=== PATIENT | female | born 1995 | race Two or more races ===

== ENCOUNTER → 2021-01-27 15:58 | Outpatient (BNVA) | payer OTHER, SELFPAY | PROVIDERS: PCP Nurse Practitioner Family; Referring Provider Nurse Practitioner Family; Visit Provider Physician Assistant Surgical ==

== ENCOUNTER → 2021-01-27 15:58 | Outpatient (BNVA) | payer OTHER, SELFPAY | PROVIDERS: PCP Nurse Practitioner Family; Referring Provider Nurse Practitioner Family; Visit Provider Physician Assistant Surgical ==

== ENCOUNTER → 2021-03-01 08:10 | Outpatient (BNVA) | payer OTHER, SELFPAY | PROVIDERS: PCP Nurse Practitioner Family; Visit Provider Surgery ==

== ENCOUNTER 2021-03-03 06:22 | Outpatient (REF) | payer OTHER, SELFPAY ==
[2021-03-03 06:30] LABS: MANUAL DIFF FLAG NO
[2021-03-03 07:35] LABS: Basophils Absolute Auto 0.1 X10*3/uL (0.0-0.2); Basophils Percent Auto 0.8 % (0-2); Eosinophils Absolute Auto 0.1 X10*3/uL (0.0-0.4); Eosinophils Percent Auto 1.8 % (0-4); Hematocrit 38.6 % (37.0-47.0); Hemoglobin 12.3 g/dl (12.0-16.0); Imm Gran Abs Auto 0.02 X10*3/uL (0.00-0.03); Imm Gran Pct Auto 0.3 % (0.0-0.4); Lymphocytes Absolute Auto 2.6 X10*3/uL (1.2-4.9); Lymphocytes Percent Auto 35.2 % (20-40); Mean Corpuscular HGB Conc 31.9 g/dl (31.0-35.0); Mean Corpuscular Volume 87.7 fL (80.0-98.0); Mean Platelet Volume 11.4 fL (9.4-12.3); Monocytes Absolute Auto 0.4 X10*3/uL (0.1-1.2); Monocytes Percent Auto 5.7 % (2-11); Neutrophils Absolute Auto 4.08 x10*3/uL (2.0-8.3); Neutrophils Percent Auto 56.2 % (45-73); Platelet Count 352 X10*3/uL (160-400); Red Cell Distribution Width 12.3 % (11.0-16.0); White Blood Count 7.3 X10*3/uL (4.8-10.8)
[2021-03-03 08:12] LABS: Alanine Aminotransferase 20 U/L (0-31); Albumin Level 4.1 g/dL (3.5-5.0); Alkaline Phosphatase 188 U/L (39-117); Anion Gap 13 (12-20); Aspartate Amino Transferase 20 U/L (5-31); Bilirubin Total 0.3 mg/dL (0.0-1.0); Blood Urea Nitrogen 12 mg/dL (9-16); C Reactive Protein 0.73 mg/dL (< or = 0.50); Calcium 9.2 mg/dL (8.4-10.2); Carbon Dioxide 24 mmol/L (22-29); Chloride 107 mmol/L (96-108); Cholesterol 156 mg/dL; Estimated Glomerular Filt Rate > 60; Glucose Random 93 mg/dL (60-115); HDL Cholesterol 29 mg/dL; Iron 37 mcg/dL (30-160); LDL Cholesterol Calculated 110 mg/dl; Percent Iron Saturation 10 % (15-50); Potassium 4.2 mmol/L (3.3-5.1); Sodium 140 mmol/L (135-145); Total Iron Binding Capacity 365 mcg/dL (228-428); Triglycerides 89 mg/dL; Unsaturated Iron Binding 328 ug/dL
[2021-03-03 08:37] LABS: Ferritin 28 ng/mL (10-122); Insulin 19 uU/mL (2-29); Vitamin D 25-OH Total 13.7 ng/mL (>30)
[2021-03-03 08:40] LABS: Estimated Average Glucose 94 mg/dL; Hemoglobin A1c % 4.9 %
[2021-03-03 09:32] LABS: Folate 10.9 ng/mL (> or = 4.0); Vitamin B12 431 pg/mL (200-900)
[2021-03-04 16:51] LABS: Calcium (PTHI) 9.6 mg/dL (8.6-10.2); PTHI 54 pg/mL (14-64)
[2021-03-07 15:17] LABS: Zinc 73 mcg/dL (60-130)
[2021-03-08 10:46] LABS: Vitamin B1 9 nmol/L (8-30)
[2021-03-08 12:20] LABS: Vitamin A 29 mcg/dL (38-98)
== END 2021-03-03 06:23 | disposition home or self-care (01) ==
LOC: HO.LAB 06:22
PROVIDERS: PCP Nurse Practitioner Family; Visit Provider Surgery
DX: E66.01 Morbid (severe) obesity due to excess calories (principal); E78.5 Hyperlipidemia, unspecified
CPT/HCPCS: 36415; 80053; 80061; 82306; 82607; 82728; 82746; 83036; 83525; 83540; 83970; 84425; 84443; 84590; 84630; 85025; 86140

== ENCOUNTER → 2021-03-24 08:04 | Outpatient (BNVA) | payer OTHER, SELFPAY | PROVIDERS: PCP Nurse Practitioner Family; Visit Provider Surgery ==

== ENCOUNTER → 2021-04-05 08:21 | Outpatient (BNVA) | payer OTHER, SELFPAY | PROVIDERS: PCP Nurse Practitioner Family; Visit Provider Dietitian, Registered ==

== ENCOUNTER → 2021-04-16 08:11 | Outpatient (BNVA) | payer OTHER, SELFPAY | PROVIDERS: PCP Nurse Practitioner Family; Visit Provider Dietitian, Registered | DX: E66.9 Obesity, unspecified (principal); Z68.37 Body mass index [BMI] 37.0-37.9, adult | CPT/HCPCS: 97802 ==

== ENCOUNTER → 2021-04-26 07:48 | Outpatient (BNVA) | payer OTHER, SELFPAY | PROVIDERS: PCP Nurse Practitioner Family; Visit Provider Surgery ==

== ENCOUNTER 2021-05-07 10:26 | Outpatient (REF) | payer OTHER, SELFPAY ==
--- NOTE | ~2021-05-07 | XR_ITS ---
EXAMINATION: XR CHEST CLINICAL INFORMATION: Moderate to severe obesity due to excess calories. COMPARISON: None TECHNIQUE: 2 views of the chest were obtained. FINDINGS: No significant abnormality is noted involving the heart, lungs, mediastinum, bony thorax or soft tissues. XR/XR chest 2V IMPRESSION: Unremarkable chest examination.
--- NOTE | 2021-05-07 11:03 | ECG_ITS ---
Test Reason : e66.01 Blood Pressure : / mmHG Vent. Rate : 075 BPM Atrial Rate : 075 BPM P-R Int : 162 ms QRS Dur : 088 ms QT Int : 386 ms P-R-T Axes : 051 068 039 degrees QTc Int : 431 ms Normal sinus rhythm with sinus arrhythmia Normal ECG No previous ECGs available Referred By: Jamar Wetzel Electronically Signed By:VIRGINIA ROSS MD
[2021-05-09 14:50] LABS: H Pylori Breath Test Negative (Negative)
== END 2021-05-07 10:27 | disposition home or self-care (01) ==
LOC: HO.XRAY 10:26
PROVIDERS: Surgery; PCP Nurse Practitioner Family; Referring Provider Nurse Practitioner Family; Visit Provider Physician Assistant
DX: E66.01 Morbid (severe) obesity due to excess calories (principal); E78.5 Hyperlipidemia, unspecified
CPT/HCPCS: 36415; 71046; 83013; 93005; 99211

== ENCOUNTER → 2021-05-13 08:17 | Outpatient (BNVA) | payer OTHER, SELFPAY | PROVIDERS: PCP Nurse Practitioner Family; Referring Provider Surgery; Visit Provider Dietitian, Registered ==

== ENCOUNTER → 2021-05-24 07:45 | Outpatient (BNVA) | payer OTHER, SELFPAY | PROVIDERS: PCP Nurse Practitioner Family; Visit Provider Surgery ==

== ENCOUNTER → 2021-06-09 08:28 | Outpatient (BNVA) | payer OTHER, SELFPAY | PROVIDERS: PCP Nurse Practitioner Family; Referring Provider Surgery; Visit Provider Dietitian, Registered | DX: E66.9 Obesity, unspecified (principal); Z68.37 Body mass index [BMI] 37.0-37.9, adult | CPT/HCPCS: 97803 ==

== ENCOUNTER → 2021-06-14 08:04 | Outpatient (BNVA) | payer OTHER, SELFPAY | PROVIDERS: PCP Nurse Practitioner Family; Visit Provider Physician Assistant Surgical ==

== ENCOUNTER → 2021-06-18 08:47 | Outpatient (BNVA) | payer OTHER, SELFPAY | PROVIDERS: PCP Nurse Practitioner Family; Visit Provider Surgery ==

== ENCOUNTER → 2021-07-05 08:04 | Outpatient (BNVA) | payer OTHER, SELFPAY | PROVIDERS: PCP Nurse Practitioner Family; Visit Provider Surgery ==

== ENCOUNTER → 2021-07-09 12:48 | Outpatient (BNVA) | payer OTHER, SELFPAY | PROVIDERS: PCP Nurse Practitioner Family; Referring Provider Nurse Practitioner Family; Visit Provider Surgery ==

== ENCOUNTER 2021-07-15 07:39 | Inpatient (IN) | payer OTHER, SELFPAY ==
[2021-07-07 16:07] VITALS: BMI 36.4
--- NOTE | 2021-07-10 01:19 | MHC.SHP ---
Pre-Procedural Eval Section A Date of Service: 07/10/21 The patient is an INPATIENT: Yes Section B Chief Complaint: obesity Relevant Family History (Specify if Yes): No Relevant Social History: None Present Medications: None Medical History: No relevant PMH History of Previous Operations: No relevant previous surgery Allergies: Allergies Allergy/AdvReac Type Severity Reaction Status Date / Time No Known Allergies Allergy Verified 07/07/21 16:06 Review of Systems Sugical H&P ROS: Negative: Constitution, Cardiovascular, Respiratory, Neurological, Psychiatric, Hem-Onc, Allergic/Immunologic, Gastrointestinal, Genitourinary, Musculoskeletal, Integumentary, Endocrine and Eyes/Ears/Nose/Throat Exam Surgical H&P Exam: Normal: HEENT, Normal: Heart, Normal: Lungs, Normal: Extremities, Normal: Abdomen, Normal: Skin and Normal: Neurological Plan Diagnosis/Plan: Unchanged I have reviewed the history and physical and performed a pertinent physical examination on my patient. No changes have occurred unless specified.
[2021-07-12 10:19] LABS: MANUAL DIFF FLAG NO
[2021-07-12 11:00] LABS: Basophils Percent Auto 0.4 % (0-2); Eosinophils Absolute Auto 0.1 X10*3/uL (0.0-0.4); Eosinophils Percent Auto 1.3 % (0-4); Hematocrit 40.9 % (37.0-47.0); Hemoglobin 13.3 g/dl (12.0-16.0); Lymphocytes Percent Auto 27.6 % (20-40); Mean Corpuscular HGB Conc 32.5 g/dl (31.0-35.0); Mean Corpuscular Hemoglobin 28.1 pg (27.0-33.0); Mean Corpuscular Volume 86.3 fL (80.0-98.0); Mean Platelet Volume 11.6 fL (9.4-12.3); Monocytes Absolute Auto 0.5 X10*3/uL (0.1-1.2); Monocytes Percent Auto 6.7 % (2-11); Neutrophils Absolute Auto 4.5 x10*3/uL (2.0-8.3); Platelet Count 385 X10*3/uL (160-400); Red Blood Count 4.74 X10*6/uL (4.20-5.50); White Blood Count 7.1 X10*3/uL (4.8-10.8)
[2021-07-12 11:20] LABS: Estimated Average Glucose 91 mg/dL; Hemoglobin A1c % 4.8 %; INTERNATIONAL NORM RATIO 1.2 (0.9-1.1); Prothrombin Time 13.8 SEC (9.9-13.0)
[2021-07-12 11:21] LABS: Alanine Aminotransferase 15 U/L (0-31); Albumin Level 4.3 g/dL (3.5-5.0); Alkaline Phosphatase 182 U/L (39-117); Anion Gap 16 (12-20); Aspartate Amino Transferase 20 U/L (5-31); Bilirubin Total 0.7 mg/dL (0.0-1.0); Blood Urea Nitrogen 16 mg/dL (9-16); C Reactive Protein 0.65 mg/dL (< or = 0.50); Calcium 10.1 mg/dL (8.4-10.2); Carbon Dioxide 24 mmol/L (22-29); Chloride 103 mmol/L (96-108); Cholesterol 162 mg/dL; Creatinine Clr Calc Pharmacy 155.6; Estimated Glomerular Filt Rate > 60; Glucose Random 72 mg/dL (60-115); HDL Cholesterol 32 mg/dL; LDL Cholesterol Calculated 115 mg/dl; Potassium 4.4 mmol/L (3.3-5.1); Sodium 139 mmol/L (135-145); Triglycerides 78 mg/dL
[2021-07-12 11:22] LABS: Partial Thromboplastin Time 46.4 SEC (24.1-38.0)
[2021-07-12 11:47] LABS: Insulin 7 uU/mL (2-29); TSH reflex Free T4 0.86 uIU/mL (0.32-4.0)
--- NOTE | 2021-07-14 08:21 | HO.ANESPROP2 ---
Documented by User: Carole Eden NP 07/14/21 08:23 HPI - Anesthesia Eval Consult details Narrative: 25yo F for Gastrectomy Sleeve,EGD,poss diaphragmatic hernia,poss ventral hernia,poss open, Cochlear implant R ear PMFSH Active Problems Active Problems: All Active Problems (Updated 06/18/21 @ 13:24 by Jamar Wetzel MD) Constipation (Acute) Vitamin A deficiency (Acute) Vitamin D deficiency (Acute) Vitamin B12 deficiency (Acute) Obesity (Acute) BMI 37.0-37.9, adult (Acute) Moderate episode of recurrent major depressive disorder (Acute) BMI 36.0-36.9,adult (Acute) Hyperlipidemia (Acute) Morbid obesity (Acute) Past Medical History Medical History (Updated 07/15/21 @ 12:23 by Jamar Wetzel MD) Hyperlipidemia Morbid obesity PONV (postoperative nausea and vomiting) Steatosis, liver Family History Family History (Updated 03/01/21 @ 11:52 by Garrett Rivera Sofia) Mother No problems noted. Father Stroke Hypertension Sister No problems noted. Sister Asthma Brother No problems noted. Son No problems noted. Daughter No problems noted. Surgical History Surgical History (Updated 07/15/21 @ 14:54 by Kelley Gary PA-C) Hx of external ear surgery Hx of tubal ligation Social History Social History (Updated 07/07/21 @ 16:10 by Erin Hermosillo RN) Are you a primary primary care sales representative to a significant other at home: Yes (children ages 6+1, there to help post-op) Do you presently have visiting nurse or other home services: No Alcohol intake: never Patient Tobacco Use Status: Never used Tobacco Use of substances other than those prescribed or required for medical reasons: No Have you been hit, kicked, punched, or otherwise hurt by someone within the past year? If so, by whom?: No Are you DNR?: No Advance Directives: No (will bring DOS) Advance Directives Information Provided: No Advance Directives on File: No Recently lost weight without trying: No Nutrition Risks: No Nutritional Risk Patient : No FDLMP: 06/30/2021 : No Poor oral hygiene: No (2 front upper crowns) Meds Allergies Allergy/AdvReac Type Severity Reaction Status Date / Time No Known Allergies Allergy Verified 07/07/21 16:06 Home Medications Medication Instructions Recorded Confirmed Last Taken Type sertraline 25 mg tablet 25 mg PO DAILY 07/05/21 07/07/21 Unknown History Exam Exam Date and Time: July 14, [id number] Height,Weight and Vital Signs: Height 5 ft 9 in Weight 112.037 kg Pertinent Lab Results Pertinent Lab Results: Laboratory Tests 07/12/21 07/12/21 07/12/21 10:15 10:15 10:15 WBC 7.1 RBC 4.74 Hgb 13.3 Hct 40.9 MCV 86.3 MCH 28.1 MCHC 32.5 RDW 12.0 Plt Count 385 MPV 11.6 Immature Gran % (Auto) 0.0 Neut % (Auto) 64.0 Lymph % (Auto) 27.6 Bowman % (Auto) 6.7 Eos % (Auto) 1.3 Baso % (Auto) 0.4 Lymph # (Auto) 2.0 Bowman # (Auto) 0.5 Eos # (Auto) 0.1 Baso # (Auto) 0.0 Abs Immat Gran (auto) 0.00 Absolute Neuts (auto) 4.5 Absolute Nucleated RBC 0.000 Nucleated RBC % (auto) 0.0 PT 13.8 H INR 1.2 H APTT 46.4 H Sodium 139 Potassium 4.4 Chloride 103 Carbon Dioxide 24 Anion Gap 16 BUN 16 Creatinine 0.75 Estim Creat Clear Calc 155.6 Estimated GFR > 60 Random Glucose 72 Estimat Average Glucose Hemoglobin A1c % Insulin Level 7 Calcium 10.1 D Total Bilirubin 0.7 AST 20 ALT 15 Alkaline Phosphatase 182 H C-Reactive Protein 0.65 H Total Protein 8.0 Albumin 4.3 Triglycerides 78 Cholesterol 162 LDL Cholesterol, Calc 115 HDL Cholesterol 32 TSH 0.86 Blood Type Antibody Screen 07/12/21 07/12/21 10:15 10:15 WBC RBC Hgb Hct MCV MCH MCHC RDW Plt Count MPV Immature Gran % (Auto) Neut % (Auto) Lymph % (Auto) Bowman % (Auto) Eos % (Auto) Baso % (Auto) Lymph # (Auto) Bowman # (Auto) Eos # (Auto) Baso # (Auto) Abs Immat Gran (auto) Absolute Neuts (auto) Absolute Nucleated RBC Nucleated RBC % (auto) PT INR APTT Sodium Potassium Chloride Carbon Dioxide Anion Gap BUN Creatinine Estim Creat Clear Calc Estimated GFR Random Glucose Estimat Average Glucose 91 Hemoglobin A1c % 4.8 Insulin Level Calcium Total Bilirubin AST ALT Alkaline Phosphatase C-Reactive Protein Total Protein Albumin Triglycerides Cholesterol LDL Cholesterol, Calc HDL Cholesterol TSH Blood Type B Positive Antibody Screen NEGATIVE Narrative Narrative: EKG 05/2021 Vent. Rate : 075 BPM ? ? Atrial Rate : 075 BPM ?? P-R Int : 162 ms? QRS Dur : 088 ms ? ? QT Int : 386 ms ? ? ? P-R-T Axes : 051 068 039 degrees ?? QTc Int : 431 ms ? Normal sinus rhythm with sinus arrhythmia Normal ECG No previous ECGs available Assessment and Plan Assessment Anesthesia Assessment: Chart Reviewed Documented by User: Tu Leahy MD 07/15/21 16:42 HPI - Anesthesia Eval Consult details Narrative: 25yo F for Gastrectomy Sleeve,EGD,poss diaphragmatic hernia,poss ventral hernia,poss open, Cochlear implant R ear. [facility] Past Medical History Medical History (Updated 07/15/21 @ 12:23 by Jamar Wetzel MD) Hyperlipidemia Morbid obesity PONV (postoperative nausea and vomiting) Steatosis, liver Family History Family History (Updated 03/01/21 @ 11:52 by Garrett Rivera [facility]) Mother No problems noted. Father Stroke Hypertension Sister No problems noted. Sister Asthma Brother No problems noted. Son No problems noted. Daughter No problems noted. Family history of problems with anesthesia: No Surgical History Surgical History (Updated 07/15/21 @ 14:54 by Kelley Gary PA-C) Hx of external ear surgery Hx of tubal ligation History of Problems with Anesthesia: Yes (PONV ) Social History Social History (Updated 07/07/21 @ 16:10 by Erin Hermosillo RN) Are you a primary primary care sales representative to a significant other at home: Yes (children ages 6+1, there to help post-op) Do you presently have visiting nurse or other home services: No Alcohol intake: never Patient Tobacco Use Status: Never used Tobacco Use of substances other than those prescribed or required for medical reasons: No Have you been hit, kicked, punched, or otherwise hurt by someone within the past year? If so, by whom?: No Are you DNR?: No Advance Directives: No (will bring DOS) Advance Directives Information Provided: No Advance Directives on File: No Recently lost weight without trying: No Nutrition Risks: No Nutritional Risk Patient : No FDLMP: 06/30/2021 : No Poor oral hygiene: No (2 front upper crowns) Meds Allergies Allergy/AdvReac Type Severity Reaction Status Date / Time No Known Allergies Allergy Verified 07/07/21 16:06 Home Medications Medication Instructions Recorded Confirmed Last Taken Type sertraline 25 mg tablet 25 mg PO DAILY 07/05/21 07/07/21 Unknown History Exam Airway Mallampati Class: II TM Dist: >3cm Neck ROM: Full Loose/Missing/Broken Teeth: Yes (Crowns ) Heart: rrr Lungs: bl breath sounds Assessment and Plan Assessment Anesthesia Assessment: Anesthesia Plan Discussed Final Anesthetic Review Family History of Problems with Anesthesia: No History of Problems with Anesthesia: Yes (PONV ) NPO: Yes ASA Class: III Final Preanesthetic Review: Meds/Allgs Chart Reviewed, Consent Obtained/Reviewed and Anes Risks/Benef Reviewed Patient Risk: High Procedure Risk: Intermediate Anesthetic Plan Anesthetic Plan: GA Disposition: Inp. Admit - Standard Bed
[2021-07-14 13:56] LABS: COVID-19 Test Negative (Negative); IDNOW Serial# 16C4AD1C
[2021-07-15] VITALS (11 sets, daily range): BP systolic 124–138; BP diastolic 65–81; PULSE 59–80; RESP 14–20; TEMP 36.1–36.9; O2SAT 91–101
--- NOTE | ~2021-07-15 | FL_ITS ---
EXAMINATION: XR FLUOROSCOPY UPPER GI WITH AIR CLINICAL INFORMATION: Obesity. Preop. COMPARISON: None TECHNIQUE: Upper GI was performed using thin and thick barium and effervescent granules. FINDINGS: Esophageal motility is normal. No gastroesophageal reflux or hernia is seen. The stomach and duodenum are normal. No fold thickening, mass, ulcer or stricture is seen. FLUOROSCOPY TIME: 0.4 DOSE AREA PRODUCT: 5 herad per centimeter squared. 18 saved fluoroscopic images. FL/FL upper GI w air IMPRESSION: Unremarkable examination.
--- NOTE | ~2021-07-15 | US_ITS ---
EXAMINATION: US COMPLETE ABDOMEN WITH LIVER ELASTOGRAPHY CLINICAL INFORMATION: [id number] obesity due to excess calories. COMPARISON: None. TECHNIQUE: Real-time imaging of the abdominal viscera. Noninvasive ultrasound liver fibrosis assessment is performed using Emmett ElastPQ point quantification shear wave elastography (2D-SWE) with a C5-2 MHz transducer. Multiple elastography samples are obtained. FINDINGS: PANCREAS: The visualized pancreatic head and body are normal in appearance. The remainder of the pancreas is obscured from visualization by the overlying bowel gas. ABDOMINAL AORTA: The proximal, middle, and distal aortic segments are normal in caliber. INFERIOR VENA CAVA: Visualized portions are normal. LIVER: The liver demonstrates normal size, contour and increased echogenicity. No focal lesion or intrahepatic biliary duct dilatation. The right lobe measures 12.2 cm in length. The left lobe measures 8.3 cm in length. Portal flow is hepatopedal. Shear wave liver elastography median stiffness is 1.67 m/s (reference: normal median stiffness is 1.3 m/s or less). IQR/median stiffness to assess sampling precision is 0.12 (reference: good quality data set is IQR/median stiffness of 0.15 or less). GALLBLADDER: There are multiple echogenic gallstones with the largest stone measuring 0.7 x 0.31 x 0.59 seen. In addition, there is echogenic bile. There is mild gallbladder wall thickening. COMMON BILE DUCT: Normal in caliber measuring 0.24 cm in diameter. RIGHT KIDNEY: Normal. No hydronephrosis. No renal calculi or focal parenchymal lesions. The kidney measures 10.8 cm in maximum dimension. LEFT KIDNEY: Normal. No hydronephrosis. No renal calculi or focal parenchymal lesions. The kidney measures 10.0 cm in maximum dimension. SPLEEN: There is a focal lesion measuring 1.8 x 1.4 x 1.2 cm. Adjacent to the spleen, there is likely an accessory splenule. The spleen measures 10.0 cm in maximum dimension. FREE FLUID: None. US/US abdomen comp w elastography IMPRESSION: 1. Gallstones without wall thickening. 2. Hepatic steatosis without focal lesion. 3. Likely a small accessory splenule. 4. Liver elastography: Mean liver stiffness measures 1.67 cm corresponding to cACLD, ruled out. REFERENCE: Society of Radiologists in Ultrasound Liver Stiffness Thresholds (2020): LIVER STIFFNESS THRESHOLDS: *Liver Stiffness equal or less than 1.3 m/s: High probability of being normal. *Liver Stiffness less than 1.7 m/s: In the absence of other known clinical signs, rules out compensated advanced chronic liver disease. *Liver Stiffness 1.7-2.1 m/s: Suggestive of compensated advanced chronic liver disease but need further test for confirmation. *Liver Stiffness over 2.1 m/s: Rules in compensated advanced chronic liver disease. *Liver Stiffness over 2.4 m/s: Suggestive of clinically significant portal hypertension. QUALITY OF DATA SET: *IQR/Median value equal or less than 0.15 implies a quality data set. *IQR/Median value over 0.15 implies a poor quality data set. SIGNIFICANT CHANGE FROM PRIOR EXAM: Significant change if liver stiffness measurement is 10% or greater from prior exam. OTHER CONSIDERATIONS: The stage of liver fibrosis may be overestimated in the setting of acute hepatitis, liver inflammation, elevated liver function tests, hepatic vascular congestion, obstructive cholestasis, non-fasting state, and infiltrative diseases such as amyloidosis and lymphoma. In some patients with NAFLD, the liver stiffness thresholds for compensated advanced chronic liver disease may be lower. In causes other than viral hepatitis and NAFLD, liver stiffness thresholds are not well established.
[2021-07-15] MEDS: Lactated Ringers 1,000 ML 999 ML IV (11:28)
[2021-07-15] MEDS: Scopolamine 1.5 MG PATCH.TD.3 TRANSDERMA (11:29)
--- NOTE | 2021-07-15 12:15 | PM.OP ---
Brief Operative Note Date of Service: 07/15/21 Pre-op diagnosis: Severe obesity with comorbidities (see below) Post-op diagnosis: same Procedure: INITIAL PATIENT BMI ON PRESENTATION AT OUR OFFICE: 40.5 kg/m2 LAST BMI BEFORE SURGERY: 36.6 kg/m2 COMORBIDITIES: hyperlipidemia, liver steatosis ?The patient presented to the Weight Management Program with significant obesity that was negatively impacting the patient's comorbidities as listed above.? The program is a phased program with a special focus on preoperative medical weight management to promote substantial weight loss and prepare the patients for the second phase of the program: bariatric surgery. The patient participated in an intensive weekly lifestyle ?intervention and exercise program during which the patient ?has lost between the initial office visit and the last preoperative visit 27.2 lbs, or 12.18% of initial actual body weight. It was deemed appropriate for the patient to now have bariatric surgery. In light of the current Covid-19 pandemic and the well documented strong association of obesity and increased risk of worse outcomes if infected with Covid-19 (REFERENCES:https://pubmed.ncbi.nlm.nih.gov/58014266/,?https://pubmed.ncbi.nlm.nih.gov/52650758/), any delay in undergoing bariatric surgery may lead to the patient's worsening health condition and increased?risk of more severe Covid-19 disease if infected. In addition a recent?study from [facility] published in [facility] [employer] on 04/26/2021 ([email or web address]) found that, among patients with obesity, substantial weight loss achieved with surgery was associated with improved outcomes of COVID-19 infection. The findings suggest that obesity can be a modifiable risk factor for the severity of COVID-19 infection. In addition, the patient met the BMI-criteria for bariatric surgery based on the BMI on initial presentation. The patient should not be penalized for achieving such weight loss because ?it is not sustainable long-term without surgical intervention and it was achieved in preparation for bariatric surgery ?under my direction and based on my published research ([email or web address] and?https://www.soard.org/article/[email or web address])90601-X/pdf) ?that a 10% preoperative weight loss improves long-term weight loss after surgery and reduces perioperative complications.? Insurance carriers such as [facility] have endorsed my recommendations ?and have included in their policies criteria to include a 10% preoperative weight loss requirement. PROCEDURE: Esophago-gastroscopy, laparoscopic sleeve gastrectomy and laparoscopic gastropexy INDICATIONS: This is a 25 year-old female who was electively scheduled for laparoscopic, possibly open sleeve gastrectomy. The risks and complications of the procedure were discussed with the patient in advance, particularly the possibility of ; pulmonary embolism; staple line leak; bleeding; GERD; cardiac, pulmonary, or renal complications; as well as long-term problems such as insufficient weight loss, vitamin deficiency, strictures, or ulcers. The patient understood all the risks, and was in agreement to proceed with surgery. DESCRIPTION OF PROCEDURE: After informed consent was obtained from the patient, the patient was given preoperative antibiotics, and was transferred to the operating room. After successful induction of general anesthesia, pneumatic compression devices were placed on both lower extremities. An upper endoscopy was performed next. The oropharynx and esophagus appeared to be within normal limits. There was no diaphragmatic hernia present, consistent with the findings of the preoperative upper GI. The stomach was entered. Then after all fluid and air were suctioned and the stomach was fully decompressed, the scope was withdrawn and secured in the mid esophagus. The patient was then prepped and draped in the usual sterile manner, and abdominal access was established at the right upper quadrant with the Jamil technique. A 12 mm blunt port was inserted, and the abdomen was insufflated with CO2 to a pressure of 15 mmHg. Under direct visualization, additional ports were placed, specifically two 5 mm Versi-step ports to the left upper quadrant, and a 5 mm Versi-Step port to the right upper quadrant. 1% lidocaine plain was used to infiltrate all port sites as well as all fascia defects. Using the EndoClose suture passer device, I placed a #1 Polysorb tie across the falciform ligament in order to retract it up against the abdominal wall and prevent injury of the ligament with our instruments during the procedure. Following that, the patient was placed in a steep reverse Trendelenburg position. An additional 5 mm port was placed to the right flank for the Mediflex retractor that was used to retract the left lobe of the liver. The gastro-esophageal fat pad was opened with the ultrasonic device (Thunderbeat, Olympus) and the anterior esophagus and hiatus were exposed. The angle of His was opened with the ultrasonic device the fundus of the stomach from any diaphragmatic and splenic attachments. I then opened the gastrocolic ligament between the transverse colon and the greater curvature of the stomach with the ultrasonic device to enter the lesser sac and facilitate the ligation of the short gastric vessels. I started at a mid-point along the greater curvature and using the Thunderbeat, all short gastric vessels were divided all the way to the angle of His until the left yuri was completely dissected at its entirety. I then divided the gastro-colic ligament distally to a distance of about 3-4 cm proximal to the pylorus.? The stomach was then divided transversely with one Endo KIN-45 purple, one KIN-45 orange load and three KIN-60 articulating orange loads using the AEON stapler and loads. Every effort was made that the gastric sleeve had a tubular shape and an even caliber throughout. Once the sleeve resection was completed, the staple line of the gastric sleeve was reinforced with Hemoclips. The resected stomach was retrieved without difficulty from the Jamil port. A gastropexy was then performed in order to prevent postoperative GERD and partial gastric volvulus. Several interrupted 2.0 Surgidac sutures were placed between the sleeve's staple line and the previously divided greater omentum and gastro-colic ligament using the Endo-Stitch device. ?An upper endoscopy was performed. There was no narrowing at the GE junction. The scope was easily advanced all the way to the pylorus which was clearly visualized. There was no narrowing anywhere and the sleeve's caliber was even throughout. The sleeve's staple line was inspected and there was no evidence of ischemia, bleeding or dehiscence. At that point the gastroscope was withdrawn from the patient?s mouth while we were decompressing the bowel and the stomach from any remaining air. I looked into the lesser sac to see how the sleeve was situating and it was situating well. There was no bleeding from the staple line, spleen, or short gastric vessels. The Mediflex retractor was removed, and the undersurface of the liver was inspected and there was no bleeding. The patient was placed in supine position. I closed the fascial defect of the 12 mm port site with a figure of eight #1 Polysorb suture. Then 100 cc 0.25 % Marcaine plain with 10 mg of Dexamethasone were used to infiltrate the fascial closure as well as all skin incisions. At this point, the abdomen was deflated, all ports were removed under direct vision, and no bleeding was noted from any of the port sites. The skin incisions were irrigated with saline and were closed with 4-0 absorbable monofilament sutures. Steri-Strips and OpSites were used to cover all incisions. The patient was extubated and was transferred in stable condition to the recovery room for further care. I was present and performed all boykin parts of the procedure. Ms. Gary was the licensed physical therapy assistant. There were no residents to assist with this case. Medardo Wetzel MD, PhD, FACS Surgeon: Jamar Wetzel MD Anesthesia: GETA, local and other (TAP block) Was an Regional Agronomist used for this Procedure?: No Regional Agronomist: Kelley Gary Estimated blood loss (mL): 10 IV fluids (mL): 2,500 Urine output (mL): 0 (No Roblero to record) Pathology: other (Stomach) Condition: stable Disposition: PACU
--- NOTE | 2021-07-15 12:21 | PM.PNGS ---
Subjective Subjective Date of Service: 07/15/21 Interval history: Patient has mild incisional pain, but was able to ambulate and use the incentive spirometer. She is tolerating phase 1 bariatric diet Physical Exam Vital Signs: Vital Signs: Last Vital Signs Temp 97 F 07/15/21 11:06 Pulse 77 07/15/21 11:06 Resp 18 07/15/21 11:06 BP 126/73 07/15/21 11:06 Pulse Ox 98 07/15/21 11:06 BMI result Body Mass Index 36.4 GI: Inspection: Yes normal to inspection, Yes incision (clean, dry and intact) and Yes obesity Extrem: Right lower extremity: normal to inspection (no calf tenderness) Left lower extremity: normal to inspection (no calf tenderness) Objective Data Active Medications Lactated Ringer's (Lr) 1,000 mls @ 100 mls/hr IVCONT .Q10H YESI Labs CBC & Chem 7: 07/12/21 10:15 07/12/21 10:15 Labs: Laboratory Results - last 24 hr 07/14/21 13:20 COVID-19 (MOLLY) Negative COVID-19 Clin Com See Note Progress Note: A&P Assessment and plan (1) Obesity: Status: Acute Assessment and Plan: s/p laparoscopic sleeve gastrectomy, lysis of adhesions repair of diaphragmatic hernia, and gastropexy Doing well Check am labs. If OK, will discharge home? (2) BMI 36.0-36.9,adult: Status: Acute (3) Hyperlipidemia: Status: Acute (4) Steatosis, liver: Status: Acute (5) Cholelithiasis: Status: Acute Fall Risk Details Current Medications: Current Medications Lactated Ringer's (Lr) 1,000 mls @ 100 mls/hr IVCONT .Q10H YESI Time Spent With Patient Time: Total time spent is greater than 50% in coordination of care (as documented) at patient's floor/unit and/or counseling patient:
--- NOTE | 2021-07-15 14:56 | P.DS_ITS ---
DS: Providers Provider Date of Service: 07/16/21 Date of admission: 07/15/21 07:39 Primary care physician: Amira Ellis NP DS: Diagnosis Discharge Diagnosis (1) Obesity: Status: Acute (2) BMI 36.0-36.9,adult: Status: Acute (3) Hyperlipidemia: Status: Acute (4) Steatosis, liver: Status: Acute (5) Cholelithiasis: Status: Acute DS: Summary Hospital Course Hospital Course: ADMITTING DIAGNOSIS: morbid obesity, hyperlipidemia, depression DISCHARGE DIAGNOSIS: same, s/p laparoscopic sleeve gastrectomy PAST SURGICAL HISTORY: PROCEDURE: upper endoscopy, laparoscopic sleeve gastrectomy DISCHARGE SUMMARY: History of Present Illness: The patient is a 25 year-old woman with a BMI of 40.4 kg/m2 and associated co- morbidities as described above. The patient had extensive work-up,lost 28.4 lbs preoperatively and was electively scheduled for laparoscopic, possible open sleeve gastrectomy and gastropexy. Risks and complications of the surgery were discussed with the patient in advance, particularly the possibility of , pulmonary embolism, anastomotic leak, bleeding, bowel injury, GERD, cardiac, renal or pulmonary complications. The patient understood all the risks and was in agreement with the surgical plan. Hospital Course: The patient underwent an uneventful laparoscopic sleeve gastrectomy with gastropexy on the day of admission. Postoperatively, the patient was transferred to the surgical floor. The patient received IV Acetaminophen and IV dilaudid for pain control. Patient was started on bariatric phase 1 diet POD #0. On postoperative day one, the patient was feeling well without nausea, vomiting, fevers, or tachycardia. The patient had some mild incisional pain and the abdomen was soft. On the morning of postoperative day one, the patient was continued on 1 ounce of water or ice every half hour. During the day, the patient did fairly well, having some incisional pain, but able to ambulate adequately and to tolerate liquids well. Since the patient is doing well, we decided that the patient was ready to be discharged. The patient was given instructions to follow-up with me next week and to call my office for any fever over 101, persistent abdominal pain, nausea, vomiting, GERD, symptoms of DVT such as calf tenderness, or leg swelling, or pulmonary embolism such as chest pain or shortness of breath. The patient was also instructed to drink 40-60 ounces of liquids per day using the 1-ounce cups. The patient had been given prescriptions for Tylenol for pain, Zofran prn for nausea, and pantoprazole and carafate previously. The patient was encouraged to ambulate and use the incentive spirometer. The patient was allowed to shower, but no baths, and encouraged to stay active at home. All of these instructions were given to the patient personally. All questions were answered and the patient understood all instructions, the instructions were also given to the patient in print. Time Spent with Patient Time attestation: Total time spent providing and/or coordinating discharge services: Discharge coordination time: Less than 30 minutes Quality: Stroke Does the patient have a stroke diagnosis?: No Physical Exam Vital Signs: Vital Signs: Last Vital Signs Temp 97 F 07/15/21 11:06 Pulse 77 07/15/21 11:06 Resp 18 07/15/21 11:06 BP 126/73 07/15/21 11:06 Pulse Ox 98 07/15/21 11:06 BMI result Body Mass Index 36.4 DS: Data Data Completed and Pending Pending studies at discharge: Pending at discharge 07/15/21 14:02 Surgical [PTH] Routine Discharge Plan Discharge Anticipated Discharge Date/Time: 07/16/21 10:53 Patient Disposition: Home, Self-Care Discharge Diagnosis: s/p sleeve gastrectomy Referrals: Amira Ellis NP [Primary Care Provider] - 1 Week Discharge Medications: Continued docusate sodium [Colace] 100 mg capsule 100 mg PO DAILY Qty: 30 2RF pantoprazole 40 mg tablet,delayed release (DR/EC) 40 mg PO DAILY Qty: 30 2RF ondansetron HCl 4 mg tablet 4 mg PO Q12H Qty: 20 0RF sertraline 25 mg tablet 25 mg PO DAILY 0RF Discontinued vitamin A palmitate 10,000 unit capsule 10,000 unit PO .COMPLEX Qty: 30 2RF Rx Instructions: 10,000 units PO one per day; cholecalciferol (vitamin D3) 125 mcg (5,000 unit) capsule 125 mcg PO DAILY Qty: 30 2RF mecobalamin (vitamin B12) 1,000 mcg tablet,disintegrating 1,000 mcg sublingual DAILY Qty: 30 2RF Rx Instructions: place tablet under tongue and allow to dissolve for at least30 secs before swallowing polyethylene glycol 3350 [Miralax] 17 gram powder in packet 17 g PO DAILY Qty: 14 0RF Rx Instructions: Mix each packet with 8oz of water and do 7 packets on 07/11/21 and another 7 packets on 07/12/21 Discharge Orders: Discharge Order (Routine); Ordered 07/16/21 Ordered By: Kelley Gary Diet: other Activity on Discharge: No heavy lifting Stand Alone Forms: Patient Portal Discharge page Care Plan Goals: weight loss Health Concerns: morbid obesity Plan of Treatment: No tub baths, sex or returning to work until discussed at first post op appointment. No exercise, alcohol, tobacco or illegal drug use. Continue to use incentive spirometer hourly while awake. Walk in home for 5- 10 minutes every 2 hours during the first week. Continue phase 1 diet today and start phase 2 diet tomorrow morning. Follow all instructions in the bariatric handbook and call with any questions. 1. Please call your doctor or come back to the emergency room should any new symptoms arise. 2. You will receive a courtesy call from [facility] 24-48 hours after discharge. 3. Activity: abstain from alcohol, practice limited stair climbing, no bending, no driving, no exercise, no illicit substances, no lifting, no sex, no tub bath, no work. 4. Diet: continue as discussed with Dr. Wetzel. 5. Dressing Change/Wound Care: Do not change or remove surgical dressings unless they are wet or soiled. 6. Call your doctor if: - Your temperature exceeds 101.5 F - You experience excessive pain or swelling - You have an unexpected reaction to medication - You have excessive bleeding - You experience continued vomiting/nausea - Your incision begins to separate - Your incision shows signs of infection such as increased redness, swelling, excessive pain, heat, or drainage (light blood or clear fluid is normal) 7. General instructions: No lifting greater than 5 lbs for the next 4 weeks. No driving within 24 hours of taking narcotic pain medications. If you do not move your bowels in the next 2 days, please take milk of magnesia over the counter. Please follow the post op diet and do not advance your diet until you are seen in the office in about 2 weeks. Please walk around your home every hour or two to prevent blood clots from forming in your legs. You do not need to wake from sleeping to walk. Please sleep in a bed or couch to prevent kinking at the hips and knees. Please take your incentive spirometer (your lung airborne weapons technical manager) home with you and use it for the next few days to prevent pneumonias. You may shower, no hot tubs, baths or swimming pools. Please call the office with any questions or concerns such as increasing abdominal pain, fever, chills, shortness of breath, chest pain, leg pain or swelling, or redness or drainage from your incisions. Do not hesitate to contact the office with any questions at . The patient's medical history has been reviewed and they are considered low risk for post op DVT and therefore DVT prophylaxis is not considered necessary. Travel after surgery was reviewed. The patient has not disclosed any travel plans during the first 30 days after surgery and they have been advised that within the first 30 days after surgery any bus, plane, train or car travel over 2 hours in duration is contraindicated due to the possibility of developing blood clots from immobility. Any travel, needs to include periods of ambulation of 10 minutes in duration every 2 hours. The patient was instructed to discuss any plans for travel during this period with their bariatric surgeon. Assessment: stable, post op sleeve gstrectomy
[2021-07-15] MEDS: Famotidine/PF 20 MG/2 ML VIAL IVPUSH (15:54)
[2021-07-15 16:00] LABS: Hematocrit 37.7 % (37.0-47.0); Hemoglobin 12.3 g/dl (12.0-16.0)
[2021-07-15 18:12] LABS: Anion Gap 19 (12-20); Blood Urea Nitrogen 10 mg/dL (9-16); Calcium 8.9 mg/dL (8.4-10.2); Carbon Dioxide 17 mmol/L (22-29); Chloride 105 mmol/L (96-108); Creatinine Clr Calc Pharmacy 162.1; Estimated Glomerular Filt Rate > 60; Glucose Random 88 mg/dL (60-115); Potassium 4.3 mmol/L (3.3-5.1); Sodium 137 mmol/L (135-145)
[2021-07-15] MEDS: ceFAZolin Sodium/Dextrose,Iso 2 GM/50 ML PIGGYBACK IV (18:19)
[2021-07-15] MEDS: 0.9 % Sodium Chloride Flush 3 ML SYRINGE IVFLUSH (20:37)
[2021-07-15] MEDS: Metoclopramide HCl 10 MG/2 ML VIAL IVPUSH (20:37)
[2021-07-16] MEDS: ondansetron HCL 4 MG/2 ML VIAL IVPUSH (01:11)
[2021-07-16] MEDS: Lactated Ringers 1,000 ML 100 ML IVCONT (01:11)
[2021-07-16] MEDS: Famotidine/PF 20 MG/2 ML VIAL IVPUSH (02:56)
[2021-07-16 04:00] VITALS: BP 123/74; PULSE 72; RESP 14; TEMP 37.3; O2SAT 96
[2021-07-16 06:03] LABS: MANUAL DIFF FLAG NO
[2021-07-16 06:09] LABS: Basophils Percent Auto 0.1 % (0-2); Hematocrit 35.9 % (37.0-47.0); Hemoglobin 11.8 g/dl (12.0-16.0); Imm Gran Abs Auto 0.04 X10*3/uL (0.00-0.03); Imm Gran Pct Auto 0.3 % (0.0-0.4); Lymphocytes Percent Auto 7.2 % (20-40); Mean Corpuscular HGB Conc 32.9 g/dl (31.0-35.0); Mean Corpuscular Hemoglobin 28.4 pg (27.0-33.0); Mean Corpuscular Volume 86.3 fL (80.0-98.0); Mean Platelet Volume 11.1 fL (9.4-12.3); Monocytes Absolute Auto 0.5 X10*3/uL (0.1-1.2); Monocytes Percent Auto 3.6 % (2-11); Neutrophils Absolute Auto 11.7 x10*3/uL (2.0-8.3); Neutrophils Percent Auto 88.8 % (45-73); Platelet Count 358 X10*3/uL (160-400); Red Blood Count 4.16 X10*6/uL (4.20-5.50); Red Cell Distribution Width 12.5 % (11.0-16.0); White Blood Count 13.2 X10*3/uL (4.8-10.8)
[2021-07-16 06:27] LABS: Anion Gap 17 (12-20); Blood Urea Nitrogen 6 mg/dL (9-16); Calcium 9.3 mg/dL (8.4-10.2); Carbon Dioxide 16 mmol/L (22-29); Chloride 106 mmol/L (96-108); Creatinine Clr Calc Pharmacy 171.7; Estimated Glomerular Filt Rate > 60; Glucose Random 92 mg/dL (60-115); Potassium 4.6 mmol/L (3.3-5.1); Sodium 134 mmol/L (135-145)
--- NOTE | 2021-07-16 06:51 | HO.POSTANES ---
Post Anesthesia Evaluation Post Anesthesia Evaluation Vital Signs: Vital Signs Temp Pulse Resp BP Pulse Ox 07/16/21 04:00 99.2 F 72 14 123/74 96 07/15/21 23:50 98.5 F 71 14 126/73 91 L Anesthesia: General Endotracheal-GETA Mental Status: Awake Pain Control: Satisfactory Nausea/Vomiting: None Hydration: Adequate Anesthesia-Related Issues: No Anes. Related Issues
[2021-07-16] MEDS: 0.9 % Sodium Chloride Flush 3 ML SYRINGE IVFLUSH (07:14)
[2021-07-16 08:00] VITALS: BP 138/78; PULSE 70; RESP 18; TEMP 36.3; O2SAT 98
--- NOTE | 2021-07-16 09:56 | MHC.CM.PN ---
EMR REVIEWED, PT ADMITTED S/P LAP SLEEVE GASTRECTOMY, CM MET W/PT WHO IS A&OX4, PT REPORTS SHE LIVES W/ AND CHILDREN, PT REPORTS SHE IS INDEP W/ALL CARE, DENIES USE OF DME OR HOME SERVICES, PT VERIFIES PCP IS YESENIA ART, PT EDUCATED ON HCP'S AND DECLINES TO COMPLETE THIS ADMIT, PT VERIFIES PFIZER VACCINE X2. D/C PLAN: HOME TODAY SELF-CARE AND OUTPT FOLLOW-UP, FOR TRANSPORT
== END 2021-07-16 10:34 | disposition home or self-care (01) | DRG 403 ==
LOC: HO.SSSA 14:56 → HO.S3 16:11
PROVIDERS: Physician Assistant; Physician Assistant Surgical; Admitting Provider Surgery; PCP Nurse Practitioner Family; Visit Provider Surgery
PROC: 0DB64Z3 Excision of Stomach, Percutaneous Endoscopic Approach, Vertical (ICD-10-PCS; CPT 43845; principal; 2021-07-15 12:50)
DX: E66.01 Morbid (severe) obesity due to excess calories (principal); K76.0 Fatty (change of) liver, not elsewhere classified; E78.5 Hyperlipidemia, unspecified; Z20.822 Contact with and (suspected) exposure to COVID-19; Z68.36 Body mass index [BMI] 36.0-36.9, adult; Z79.899 Other long term (current) drug therapy
CPT/HCPCS: 36415; 74246; 76705; 76981; 80048; 80053; 80061; 83036; 83525; 84443; 85014; 85018; 85025; 85610; 85730; 86140; 86850; 86900; 86901; 87635; 88307; 88342; A4649; J0131; J0690; J1100; J1170; J2250; J2370; J2405; J2550; J2765; J3010

== ENCOUNTER → 2021-07-20 12:27 | Outpatient (BNVA) | payer OTHER, SELFPAY | PROVIDERS: PCP Nurse Practitioner Family; Referring Provider Nurse Practitioner Family; Visit Provider Surgery | DX: E66.9 Obesity, unspecified (principal); Z68.34 Body mass index [BMI] 34.0-34.9, adult; Z71.3 Dietary counseling and surveillance; Z98.84 Bariatric surgery status | CPT/HCPCS: 99212 ==

== ENCOUNTER → 2021-07-26 08:17 | Outpatient (BNVA) | payer OTHER, SELFPAY | PROVIDERS: PCP Nurse Practitioner Family; Referring Provider Surgery; Visit Provider Dietitian, Registered | DX: E66.9 Obesity, unspecified (principal); Z68.33 Body mass index [BMI] 33.0-33.9, adult | CPT/HCPCS: 97803 ==

== ENCOUNTER → 2021-08-02 08:18 | Outpatient (BNVA) | payer OTHER, SELFPAY | PROVIDERS: PCP Nurse Practitioner Family; Referring Provider Surgery; Visit Provider Dietitian, Registered | DX: E66.9 Obesity, unspecified (principal); Z68.33 Body mass index [BMI] 33.0-33.9, adult | CPT/HCPCS: 97803 ==

== ENCOUNTER → 2021-08-17 08:04 | Outpatient (BNVA) | payer OTHER, SELFPAY | PROVIDERS: PCP Nurse Practitioner Family; Visit Provider Dietitian, Registered | DX: E66.9 Obesity, unspecified (principal); Z68.31 Body mass index [BMI] 31.0-31.9, adult | CPT/HCPCS: 97803 ==

== ENCOUNTER → 2021-08-31 08:16 | Outpatient (BNVA) | payer OTHER, SELFPAY | PROVIDERS: PCP Nurse Practitioner Family; Referring Provider Surgery; Visit Provider Dietitian, Registered | DX: Z13.89 Encounter for screening for other disorder (principal) ==

== ENCOUNTER 2021-09-07 11:00 | Emergency (ER) | payer OTHER, SELFPAY ==
--- NOTE | 2021-09-07 | ECG_ITS ---
Test Reason : DEHYDRATION Blood Pressure : / mmHG Vent. Rate : 088 BPM Atrial Rate : 088 BPM P-R Int : 142 ms QRS Dur : 088 ms QT Int : 346 ms P-R-T Axes : 069 060 017 degrees QTc Int : 418 ms Normal sinus rhythm Normal ECG When compared with ECG of 07-MAY-2021 11:17, Inverted T waves have replaced nonspecific T wave abnormality in Inferior leads Referred By: Generic ED Physician Electronically Signed By:VIRGINIA ROSS MD
--- NOTE | ~2021-09-07 | US_ITS ---
EXAMINATION: US ABDOMEN LIMITED CLINICAL INFORMATION: Elevated liver function tests. Right upper quadrant pain.. COMPARISON: Previous ultrasound June 2021 TECHNIQUE: Real-time imaging of the gallbladder FINDINGS: The gallbladder is normal in size. There are gallstones. The gallbladder wall is normal. There is no pericholecystic fluid. Common bile duct is normal in caliber measuring 0.2 cm. US/US abdomen limited IMPRESSION: Gallstones. No evidence of cholecystitis.
[2021-09-07 11:14] VITALS: BP 109/69; PULSE 85; RESP 18; TEMP 36.9; O2SAT 100; BMI 29.5
[2021-09-07 11:29] LABS: MANUAL DIFF FLAG NO
[2021-09-07 11:33] LABS: Basophils Percent Auto 0.3 % (0-2); Eosinophils Absolute Auto 0.2 X10*3/uL (0.0-0.4); Eosinophils Percent Auto 2.4 % (0-4); Hematocrit 38.8 % (37.0-47.0); Hemoglobin 12.4 g/dl (12.0-16.0); Imm Gran Abs Auto 0.02 X10*3/uL (0.00-0.03); Imm Gran Pct Auto 0.3 % (0.0-0.4); Lymphocytes Absolute Auto 0.8 X10*3/uL (1.2-4.9); Lymphocytes Percent Auto 11.6 % (20-40); Mean Corpuscular Hemoglobin 28.9 pg (27.0-33.0); Mean Corpuscular Volume 90.4 fL (80.0-98.0); Mean Platelet Volume 11.4 fL (9.4-12.3); Monocytes Absolute Auto 0.5 X10*3/uL (0.1-1.2); Monocytes Percent Auto 7.8 % (2-11); Neutrophils Absolute Auto 5.3 x10*3/uL (2.0-8.3); Neutrophils Percent Auto 77.6 % (45-73); Platelet Count 275 X10*3/uL (160-400); Red Blood Count 4.29 X10*6/uL (4.20-5.50); Red Cell Distribution Width 13.4 % (11.0-16.0); White Blood Count 6.8 X10*3/uL (4.8-10.8)
[2021-09-07 11:50] LABS: Alanine Aminotransferase 43 U/L (0-31); Alkaline Phosphatase 129 U/L (39-117); Anion Gap 14 (12-20); Aspartate Amino Transferase 32 U/L (5-31); Bilirubin Total 0.8 mg/dL (0.0-1.0); Blood Urea Nitrogen 12 mg/dL (9-16); Calcium 9.6 mg/dL (8.4-10.2); Carbon Dioxide 25 mmol/L (22-29); Chloride 105 mmol/L (96-108); Creatinine Clr Calc Pharmacy 157.7; Estimated Glomerular Filt Rate > 60; Glucose Random 93 mg/dL (60-115); Potassium 3.9 mmol/L (3.3-5.1); Sodium 140 mmol/L (135-145); Total Protein 6.9 g/dL (6.5-8.0)
[2021-09-07 14:23] VITALS: BP 128/63; PULSE 78; RESP 16; TEMP 36.8; O2SAT 98
[2021-09-07] MEDS: 0.9 % Sodium Chloride 1,000 ML 999 ML IV (14:37)
--- NOTE | 2021-09-07 14:42 | ED_ITS ---
HPI - General Adult General Chief complaint: Nausea/Vomiting/Diarrhea Stated complaint: Dehydrated/Dizzy Time Seen by Provider: 09/07/21 14:25 Source: patient and old records reviewed Mode of arrival: ambulatory Limitations: no limitations History of Present Illness HPI narrative: 26-year-old female came in for evaluation of generalized weakness. Patient status post laparoscopic sleeve gastrectomy [address] Wetzel, patient had postoperative follow-up which was unremarkable, patient came in for evaluation of generalized weakness muscle cramps, patient has been following the diet that instructed for her, otherwise declined any nausea or vomiting or diarrhea had a normal bowel movement, abdominal soreness mostly suprapubic but no UTI symptoms. Patient declined any fever chills. Related Data Home Medications Medication Instructions Recorded Confirmed sertraline 25 mg tablet 25 mg PO DAILY 07/05/21 07/20/21 Previous Rx's Medication Instructions Recorded docusate sodium 100 mg capsule 100 mg PO DAILY #30 cap 03/09/21 (Colace) ondansetron HCl 4 mg tablet 4 mg PO Q12H #20 tab 06/18/21 pantoprazole 40 mg tablet,delayed 40 mg PO DAILY #30 tab 06/18/21 release docusate sodium 100 mg capsule 100 mg PO DAILY #30 cap 07/20/21 (Colace) nitrofurantoin 100 mg PO BID 7 Days #14 cap 09/07/21 monohydrate/macrocrystals 100 mg capsule (Macrobid) Allergies Allergy/AdvReac Type Severity Reaction Status Date / Time No Known Allergies Allergy Verified 07/20/21 12:32 Review of Systems Review of Systems: All other systems are reviewed and are negative Constitutional: Reports as per HPI and Reports no additional constitutional complaints Eyes: Reports as per HPI and Reports no additional eye complaints Reports system reviewed and no additional complaints, except as documented Cardiovascular: Reports as per HPI and Reports no additional cardiovascular complaints Respiratory: Reports as per HPI and Reports no additional respiratory complaints Gastrointestinal: Reports as per HPI and Reports no additional gastrointestinal complaints Genitourinary: Reports no additional female genitourinary complaints Musculoskeletal: Reports no additional musculoskeletal complaints Skin/Breast: Reports system reviewed and no additional complaints, except as docu Psychiatric: Reports no additional psychiatric complaints Endocrine: Reports no additional endocrine complaints Hematologic/Lymphatic: Reports no additional hematologic/lymphatic complaints Allergic/Immunologic: Reports no additional allergic/immunologic complaints Reports system reviewed and no additional complaints, except as documented and Reports Abnormal speech present [facility] Past Medical History Medical History BMI 36.0-36.9,adult BMI 37.0-37.9, adult Cholelithiasis Constipation Hyperlipidemia Moderate episode of recurrent major depressive disorder Morbid obesity Obesity PONV (postoperative nausea and vomiting) Steatosis, liver Vitamin A deficiency Vitamin B12 deficiency Vitamin D deficiency Surgical History Hx of external ear surgery Hx of tubal ligation S/P laparoscopic sleeve gastrectomy Family History Family History Mother No problems noted. Father Stroke Hypertension Sister No problems noted. Sister Asthma Brother No problems noted. Son No problems noted. Daughter No problems noted. Social History Social History Are you a primary home health care physician to a significant other at home: Yes (children ages 6+1, there to help post-op) Do you presently have visiting nurse or other home services: No Alcohol intake: never Patient Tobacco Use Status: Never used Tobacco Use of substances other than those prescribed or required for medical reasons: No Advance Directives: No Advance Directives Information Provided: No Patient : Yes service: No Current occupational status: unemployed Physical Exam ED Vital Signs: Vital Signs - 24 hr 09/07/21 11:14 09/07/21 14:23 09/07/21 15:47 Temperature 98.5 F 98.3 F 98.4 F Pulse Rate 85 78 77 Respiratory Rate 18 16 16 Blood Pressure 109/69 128/63 119/77 Pulse Oximetry 100 98 98 BMI result Body Mass Index 29.5 Vital signs have been reviewed as appeared to be correct. Blood pressure normal. Heart rate normal. Respiration rate normal. Temperature normal. Oxy gen saturation normal. Appearance: Alert. Oriented X3. No acute distress. Head: Normal external exam. Normocephalic. Atraumatic. No Soria signs noted. No raccoon eyes noted Eyes: PERRLA. EOMI. Conjunctiva and sclera normal. Eyelids normal. ENT: TM's Normal. Pharynx normal. Uvula midline. Moist mucous membranes. No trismus noted. No drooling noted. No muffled voice noted. Neck: Normal inspection. Neck supple. FROM. No adenopathy. Thyroid Normal. No meningeal signs. No neck mass noted. CVS: Normal heart rate and rhythm. Heart sound normal. No murmurs noted. Pulses normal throughout. Respiratory: No respiratory distress. Painless inspiration. Breath sounds no rmal. No wheezes/rales/rhonchi noted. Chest nontender. No accessory muscle usage noted or decreased air movement noted. Abdomen: Soft and nontender. Bowel sounds normal in all 4 quadrants. No disten tion noted. No organomegaly noted. No visible injury noted. Back: No CVA tenderness. Full range of motion noted. Skin: Skin warm and dry. Normal skin color. Normal skin turgor. No rashes/lesions/lacerations noted. Extremities: No lower extremity edema. Extremities exhibit normal range of mo tion. Extremities nontender. Neuro: Oriented X 3. Cranial nerve exam: II-XII are grossly intact No motor deficit. No sensory deficit. Reflexes normal. Course Course Course Narrative: Assessment and plan. 26-year-old female status post laparoscopic sleeve gastrectomy came in for nonspecific generalized weakness and muscle cramps with suprapubic pain, abdominal exam is not revealing for tenderness or rebound tenderness. UA is revealing mild UTI with no SIRS criteria, slight elevation of LFTs abdominal ultrasound showed gallstones with no acute cholecystitis otherwise unremarkable labs will start the patient on Macrobid. The case discussed with Kelley Gary from bariatric surgery agreed on the plan. Medical Decision Making Lab Data Lab results reviewed: Yes I reviewed the patient's lab results. Result diagrams: 09/07/21 11:26 09/07/21 11:26 Labs: Lab Results 09/07/21 09/07/21 09/07/21 Range/Units 11:26 11:26 14:48 WBC 6.8 (4.8-10.8) X10*3/uL RBC 4.29 (4.20-5.50) X10*6/uL Hgb 12.4 (12.0-16.0) g/dl Hct 38.8 (37.0-47.0) % MCV 90.4 (80.0-98.0) fL MCH 28.9 (27.0-33.0) pg MCHC 32.0 (31.0-35.0) g/dl RDW 13.4 (11.0-16.0) % Plt Count 275 (160-400) X10*3/uL MPV 11.4 (9.4-12.3) fL Immature Gran % (Auto) 0.3 (0.0-0.4) % Neut % (Auto) 77.6 H (45-73) % Lymph % (Auto) 11.6 L (20-40) % [place] % (Auto) 7.8 (2-11) % Eos % (Auto) 2.4 (0-4) % Baso % (Auto) 0.3 (0-2) % Lymph # (Auto) 0.8 L (1.2-4.9) X10*3/uL [place] # (Auto) 0.5 (0.1-1.2) X10*3/uL Eos # (Auto) 0.2 (0.0-0.4) X10*3/uL Baso # (Auto) 0.0 (0.0-0.2) X10*3/uL Abs Immat Gran (auto) 0.02 (0.00-0.03) X10*3/uL Absolute Neuts (auto) 5.3 (2.0-8.3) x10*3/uL Absolute Nucleated RBC 0.000 (0.0-0.012) X10*3/uL Nucleated RBC % (auto) 0.0 (0.0-0.2) /100WBC Sodium 140 (135-145) mmol/L Potassium 3.9 (3.3-5.1) mmol/L Chloride 105 (96-108) mmol/L Carbon Dioxide 25 (22-29) mmol/L Anion Gap 14 (12-20) BUN 12 D (9-16) mg/dL Creatinine 0.66 (0.5-1.4) mg/dL Estim Creat Clear Calc 157.7 Estimated GFR > 60 Random Glucose 93 (60-115) mg/dL Calcium 9.6 (8.4-10.2) mg/dL Total Bilirubin 0.8 (0.0-1.0) mg/dL AST 32 H D (5-31) U/L ALT 43 H (0-31) U/L Alkaline Phosphatase 129 H D (39-117) U/L Total Protein 6.9 (6.5-8.0) g/dL Albumin 4.0 (3.5-5.0) g/dL Urine Color Urine Appearance Urine pH (5.0-8.0) Ur Specific [place] (1.005-1.025) Urine Protein (NEG-TRACE) MG/DL Urine Glucose (UA) (NEG) MG/DL Urine Ketones (NEG) MG/DL Urine Blood (NEG) Urine Nitrite (NEG) Ur Leukocyte Esterase (NEG) Urine RBC (0) /HPF Urine WBC (0-4) /HPF Ur Squamous Epith Cells /LPF Urine Bacteria /LPF Urine Mucus /LPF Urine Test NEGATIVE (NEGATIVE) 09/07/21 Range/Units 14:48 WBC (4.8-10.8) X10*3/uL RBC (4.20-5.50) X10*6/uL Hgb (12.0-16.0) g/dl Hct (37.0-47.0) % MCV (80.0-98.0) fL MCH (27.0-33.0) pg MCHC (31.0-35.0) g/dl RDW (11.0-16.0) % Plt Count (160-400) X10*3/uL MPV (9.4-12.3) fL Immature Gran % (Auto) (0.0-0.4) % Neut % (Auto) (45-73) % Lymph % (Auto) (20-40) % [place] % (Auto) (2-11) % Eos % (Auto) (0-4) % Baso % (Auto) (0-2) % Lymph # (Auto) (1.2-4.9) X10*3/uL [place] # (Auto) (0.1-1.2) X10*3/uL Eos # (Auto) (0.0-0.4) X10*3/uL Baso # (Auto) (0.0-0.2) X10*3/uL Abs Immat Gran (auto) (0.00-0.03) X10*3/uL Absolute Neuts (auto) (2.0-8.3) x10*3/uL Absolute Nucleated RBC (0.0-0.012) X10*3/uL Nucleated RBC % (auto) (0.0-0.2) /100WBC Sodium (135-145) mmol/L Potassium (3.3-5.1) mmol/L Chloride (96-108) mmol/L Carbon Dioxide (22-29) mmol/L Anion Gap (12-20) BUN (9-16) mg/dL Creatinine (0.5-1.4) mg/dL Estim Creat Clear Calc Estimated GFR Random Glucose (60-115) mg/dL Calcium (8.4-10.2) mg/dL Total Bilirubin (0.0-1.0) mg/dL AST (5-31) U/L ALT (0-31) U/L Alkaline Phosphatase (39-117) U/L Total Protein (6.5-8.0) g/dL Albumin (3.5-5.0) g/dL Urine Color YELLOW Urine Appearance CLOUDY Urine pH 6.5 (5.0-8.0) Ur Specific [place] 1.025 (1.005-1.025) Urine Protein 1+ H (NEG-TRACE) MG/DL Urine Glucose (UA) NEG (NEG) MG/DL Urine Ketones >=80 (NEG) MG/DL Urine Blood NEG (NEG) Urine Nitrite NEG (NEG) Ur Leukocyte Esterase 2+ H (NEG) Urine RBC 1-4 (0) /HPF Urine WBC 10-14 H (0-4) /HPF Ur Squamous Epith Cells 4+ /LPF Urine Bacteria 2+ /LPF Urine Mucus 4+ /LPF Urine Test (NEGATIVE) Imaging Data Abdominal ultrasound: Attestation: I personally reviewed and interpreted this imaging study as follows: Radiologist's impression: Gallstones, no evidence of cholecystitis. Discharge Plan Discharge Clinical Impression: UTI (urinary tract infection), Elevated LFTs Patient Disposition: Home, Self-Care Instructions: Urinary Tract Infection in Women (ED) Prescriptions: New nitrofurantoin monohyd/m-cryst [Macrobid] 100 mg capsule 100 mg PO BID 7 Days Qty: 14 0RF Rx Instructions: must administer with a meal/food No Action docusate sodium [Colace] 100 mg capsule 100 mg PO DAILY Qty: 30 2RF pantoprazole 40 mg tablet,delayed release (DR/EC) 40 mg PO DAILY Qty: 30 2RF ondansetron HCl 4 mg tablet 4 mg PO Q12H Qty: 20 0RF docusate sodium [Colace] 100 mg capsule 100 mg PO DAILY Qty: 30 2RF sertraline 25 mg tablet 25 mg PO DAILY 0RF Referrals: Jamar Wetzel MD [Physician] -
[2021-09-07 14:57] LABS: Appearance Urine CLOUDY; Color Urine YELLOW; Glucose Urine UA NEG (NEG); Leukocyte Esterase Urine 2+ (NEG); Nitrite Urine NEG (NEG); PH 6.5 (5.0-8.0); Specific Gravity - Urine 1.025 (1.005-1.025); UACC Culture Trigger YES; Urine Blood NEG (NEG); Urine Ketones >=80 MG/DL (NEG); Urine Protein 1+ MG/DL (NEG-TRACE)
[2021-09-07 14:58] LABS: UPreg QC Valid YES; Urine Pregnancy NEGATIVE (NEGATIVE)
[2021-09-07 15:15] LABS: Bacteria Urine 2+ /LPF; Mucus Urine 4+ /LPF; Squamous Epithelial Cell Urine 4+ /LPF
[2021-09-07 15:47] VITALS: BP 119/77; PULSE 77; RESP 16; TEMP 36.9; O2SAT 98
== END 2021-09-07 17:49 | disposition home or self-care (01) ==
PROVIDERS: Emergency Provider Emergency Medicine
DX: N39.0 Urinary tract infection, site not specified (principal); E86.0 Dehydration; R42 Dizziness and giddiness; R79.89 Other specified abnormal findings of blood chemistry; Z79.899 Other long term (current) drug therapy
CPT/HCPCS: 36415; 76705; 80053; 81001; 81025; 85025; 87086; 93005; 96360; 99284

== ENCOUNTER → 2021-09-08 08:28 | Outpatient (BNVA) | payer OTHER, SELFPAY | PROVIDERS: Referring Provider Surgery; Visit Provider Dietitian, Registered | DX: E66.9 Obesity, unspecified (principal); Z68.29 Body mass index [BMI] 29.0-29.9, adult | CPT/HCPCS: 97803 ==

== ENCOUNTER → 2021-09-14 08:10 | Outpatient (BNVA) | payer OTHER, SELFPAY | PROVIDERS: Referring Provider Surgery; Visit Provider Dietitian, Registered | DX: E66.3 Overweight (principal) | CPT/HCPCS: 97803 ==

== ENCOUNTER → 2021-09-28 11:17 | Outpatient (BNVA) | payer OTHER, SELFPAY | PROVIDERS: Referring Provider Surgery; Visit Provider Dietitian, Registered | DX: E66.3 Overweight (principal); Z68.27 Body mass index [BMI] 27.0-27.9, adult | CPT/HCPCS: 97803 ==

== ENCOUNTER 2021-11-27 11:24 | Emergency (ER) | payer OTHER, SELFPAY ==
[2021-11-27 12:00] VITALS: BP 115/68; PULSE 63; RESP 18; TEMP 36.6; O2SAT 99; BMI 26.4
[2021-11-27 12:50] LABS: MANUAL DIFF FLAG NO
[2021-11-27 12:52] LABS: Basophils Percent Auto 0.4 % (0-2); Eosinophils Percent Auto 0.4 % (0-4); Hematocrit 36.9 % (37.0-47.0); Hemoglobin 11.9 g/dl (12.0-16.0); Imm Gran Abs Auto 0.01 X10*3/uL (0.00-0.03); Imm Gran Pct Auto 0.1 % (0.0-0.4); Lymphocytes Absolute Auto 1.8 X10*3/uL (1.2-4.9); Lymphocytes Percent Auto 25.7 % (20-40); Mean Corpuscular HGB Conc 32.2 g/dl (31.0-35.0); Mean Corpuscular Hemoglobin 29.4 pg (27.0-33.0); Mean Corpuscular Volume 91.1 fL (80.0-98.0); Mean Platelet Volume 10.8 fL (9.4-12.3); Monocytes Absolute Auto 0.4 X10*3/uL (0.1-1.2); Monocytes Percent Auto 5.8 % (2-11); Neutrophils Absolute Auto 4.8 x10*3/uL (2.0-8.3); Neutrophils Percent Auto 67.6 % (45-73); Platelet Count 294 X10*3/uL (160-400); Red Blood Count 4.05 X10*6/uL (4.20-5.50); Red Cell Distribution Width 12.2 % (11.0-16.0); White Blood Count 7.1 X10*3/uL (4.8-10.8)
[2021-11-27 13:30] LABS: Alanine Aminotransferase 12 U/L (0-31); Albumin Level 4.1 g/dL (3.5-5.0); Alkaline Phosphatase 114 U/L (39-117); Anion Gap 14 (12-20); Aspartate Amino Transferase 19 U/L (5-31); Bilirubin Direct 0.2 mg/dL (0.0-0.5); Bilirubin Total 0.4 mg/dL (0.0-1.0); Blood Urea Nitrogen 9 mg/dL (9-16); Calcium 9.3 mg/dL (8.4-10.2); Carbon Dioxide 25 mmol/L (22-29); Chloride 108 mmol/L (96-108); Creatinine Clr Calc Pharmacy 149.8; Estimated Glomerular Filt Rate > 60; Glucose Random 88 mg/dL (60-115); Lipase 17 U/L (8-78); Potassium 4.6 mmol/L (3.3-5.1); Sodium 142 mmol/L (135-145); Total Protein 6.9 g/dL (6.5-8.0)
--- NOTE | 2021-11-27 17:55 | ED_ITS ---
HPI - Nausea/Vomiting/Diarrhea General Chief complaint: Nausea/Vomiting/Diarrhea Stated complaint: vomiting blood Time Seen by Provider: 11/27/21 17:55 Source: patient Mode of arrival: ambulatory Limitations: no limitations History of Present Illness HPI Narrative: This is a 26-year-old female status post laparoscopic sleeve gastrectomy about 4 months ago presenting to the emergency department complaints of vomiting blood times a few times today and last night. Patient tells me that she went out drinking yesterday, she was drinking Geovanna and she started vomiting. She reports that the vomit was bright red and appeared like veena red blood. She vomited on her foot and she saved it there for me to see. She reports that she is not following the diet recommended by bariatrics, and hasnt been following it for a while. She tells me that she has not seen bariatric from month or 2. She reports no issues with the surgery to date. She also reports that she has noticed that since the surgery she is easily bruising. She denies fevers, chills, chest pain, shortness of breath, abdominal pain, headache, weakness vision changes or changes in bowel habits, hematochezia MD elicited complaint: nausea and vomiting Pertinent past history: abdominal surgery (Laparoscopic sleeve gastrectomy) Onset (ago): day(s) (1) Description of vomiting: bloody Associated nausea: Yes Associated abdominal pain: No Location of pain: none Related Data Home Medications Medication Instructions Recorded Confirmed sertraline 25 mg tablet 25 mg PO DAILY 07/05/21 07/20/21 Previous Rx's Medication Instructions Recorded docusate sodium 100 mg capsule 100 mg PO DAILY #30 caps 03/09/21 (Colace) ondansetron HCl 4 mg tablet 4 mg PO Q12H nausea and vomiting 06/18/21 #20 tabs pantoprazole 40 mg tablet,delayed 40 mg PO DAILY #30 tabs 06/18/21 release docusate sodium 100 mg capsule 100 mg PO DAILY #30 caps 07/20/21 (Colace) nitrofurantoin 100 mg PO BID 7 days #14 caps 09/07/21 monohydrate/macrocrystals 100 mg capsule (Macrobid) ondansetron 4 mg disintegrating 4 mg PO ONCE PRN nausea and 11/27/21 tablet vomiting #10 tabs Allergies Allergy/AdvReac Type Severity Reaction Status Date / Time No Known Allergies Allergy Verified 11/27/21 12:00 Review of Systems Review of Systems: Constitutional : No Weight loss, No Fever, No Chills, No Fatigue, No Malaise ENT/Mouth : No sore throat, No Rhinorrhea Eyes: No Eye Pain, No Swelling, No Redness Cardiovascular : No Chest Pain, No SOB, No Dyspnea on Exertion, No Orthopnea, No Edema, No Palpitations Respiratory : No Cough, No Sputum, No Wheezing Gastrointestinal : + Nausea, + Vomiting, No Diarrhea, No Constipation, No abdominal Pain, No Hematochezia, No Melena, +hematemisis Genitourinary : No Dysuria, No Urinary Frequency, No Hematuria, Musculoskeletal : No joint pain, No Myalgias, No Joint Swelling Skin : No Skin Lesions, No rash Neuro : No Weakness, No Numbness, No Dizziness, No Headache Psych : No Anxiety/Panic, No Depression All other systems reviewed and are negative Yes all other systems are reviewed and are negative Gastrointestinal: Gastrointestinal: Reports nausea PMFSH Past Medical History Attestation statement: The following information was validated with the patient. Source: old records reviewed and nursing notes reviewed Medical History BMI 36.0-36.9,adult BMI 37.0-37.9, adult Cholelithiasis Constipation Hyperlipidemia Moderate episode of recurrent major depressive disorder Morbid obesity Obesity PONV (postoperative nausea and vomiting) Steatosis, liver Vitamin A deficiency Vitamin B12 deficiency Vitamin D deficiency Surgical History Hx of external ear surgery Hx of tubal ligation S/P laparoscopic sleeve gastrectomy Family History Family History Mother No problems noted. Father Stroke Hypertension Sister No problems noted. Sister Asthma Brother No problems noted. Son No problems noted. Daughter No problems noted. Social History Social History Are you a primary home health care social worker to a significant other at home: Yes (children ages 6+1, there to help post-op) Do you presently have visiting nurse or other home services: No Alcohol intake: never Patient Tobacco Use Status: Never used Tobacco Advance Directives: No Advance Directives Information Provided: No Patient : No service: No Current occupational status: unemployed Physical Exam Vital Signs: Vital Signs: Last Vital Signs Temp 97.9 F 11/27/21 12:00 Pulse 63 11/27/21 12:00 Resp 18 11/27/21 12:00 BP 115/68 11/27/21 12:00 Pulse Ox 99 11/27/21 12:00 O2 Del Method 11/27/21 12:00 BMI result Body Mass Index 26.4 vss Appearance: Alert.? Oriented X3.? No acute distress.? Head: Normocephalic, atraumatic, no step-offs or deformities Eyes: Pupils equal, round and reactive to light.? ENT: Pharynx normal.? Neck: Normal inspection.? Neck supple.? CVS: Normal heart rate and rhythm.? Pulses normal.? Respiratory: No respiratory distress.? Breath sounds normal.? Abdomen: Soft and nontender.? Skin: Skin warm and dry.? Normal skin color.? Normal skin turgor.? Extremities: No lower extremity edema.? No calf ttp. 5/5 strength to bilateral upper and lower extremities Back: No midline tenderness, no C-spine tenderness, full range of motion, no CVA tenderness bilaterally Neuro: Oriented X 3.? No motor deficit.? No sensory deficit. CN 2-12 intact Course Reevaluation(s) Reevaluation #1: Spoke to Rosalie CORTES from Bariatrics who recommends for patient to call Monday to schedule and apt w/ them. Recommends a clear liquid diet (atleast 60 oz a day) if tolerating that can try shakes, 3 (30 g of protein) Fairlife shakes per day, as tolerated. 1 shake should be drank over a period of 2 hours and she should try to drink 1 oz every 15 minutes slowly. Time: 18:20 MDM - Nausea/Vomiting/Diarrhea MDM Narrative Medical decision making narrative: 1800 26-year-old female presenting with a few episodes of nausea, vomiting status post heavy drinking last night, no further episodes since this morning. She is status post laparoscopic sleeve gastrectomy done here by on 07/15/2021. Physical examination benign. Plan at this time is to obtain basic labs, PT INR. Will reach out to bariatrics Medical Records Attestation: I reviewed the patient's medical records. Lab Data Attestation: I reviewed the patient's lab results. Result diagrams: 11/27/21 12:45 11/27/21 12:45 Labs: Lab Results 11/27/21 11/27/21 11/27/21 Range/Units 12:45 12:45 18:04 WBC 7.1 (4.8-10.8) X10*3/uL RBC 4.05 L (4.20-5.50) X10*6/uL Hgb 11.9 L (12.0-16.0) g/dl Hct 36.9 L (37.0-47.0) % MCV 91.1 (80.0-98.0) fL MCH 29.4 (27.0-33.0) pg MCHC 32.2 (31.0-35.0) g/dl RDW 12.2 (11.0-16.0) % Plt Count 294 (160-400) X10*3/uL MPV 10.8 (9.4-12.3) fL Immature Gran % (Auto) 0.1 (0.0-0.4) % Neut % (Auto) 67.6 (45-73) % Lymph % (Auto) 25.7 (20-40) % Tift % (Auto) 5.8 (2-11) % Eos % (Auto) 0.4 (0-4) % Baso % (Auto) 0.4 (0-2) % Lymph # (Auto) 1.8 (1.2-4.9) X10*3/uL Tift # (Auto) 0.4 (0.1-1.2) X10*3/uL Eos # (Auto) 0.0 (0.0-0.4) X10*3/uL Baso # (Auto) 0.0 (0.0-0.2) X10*3/uL Abs Immat Gran (auto) 0.01 (0.00-0.03) X10*3/uL Absolute Neuts (auto) 4.8 (2.0-8.3) x10*3/uL Absolute Nucleated RBC 0.000 (0.0-0.012) X10*3/uL Nucleated RBC % (auto) 0.0 (0.0-0.2) /100WBC PT 12.6 (10.0-13.1) SEC INR 1.1 (0.9-1.1) Sodium 142 (135-145) mmol/L Potassium 4.6 (3.3-5.1) mmol/L Chloride 108 (96-108) mmol/L Carbon Dioxide 25 (22-29) mmol/L Anion Gap 14 (12-20) BUN 9 (9-16) mg/dL Creatinine 0.66 (0.5-1.4) mg/dL Estim Creat Clear Calc 149.8 Estimated GFR > 60 Random Glucose 88 (60-115) mg/dL Calcium 9.3 (8.4-10.2) mg/dL Total Bilirubin 0.4 (0.0-1.0) mg/dL Direct Bilirubin 0.2 (0.0-0.5) mg/dL AST 19 D (5-31) U/L ALT 12 (0-31) U/L Alkaline Phosphatase 114 (39-117) U/L Total Protein 6.9 (6.5-8.0) g/dL Albumin 4.1 (3.5-5.0) g/dL Lipase 17 (8-78) U/L Critical Care Time Critical Care Time Critical Care Time: No Discharge Plan Discharge Clinical Impression: Nausea & vomiting, Hematemesis, S/P laparoscopic sleeve gastrectomy Patient Disposition: Home, Self-Care Instructions: Acute Nausea and Vomiting (ED) Additional Instructions: Take your medications as prescribed. If you were prescribed antibiotics today, it is important that you take your medication to their entirety, do not skip any doses, do not finish them early. Follow-up with your primary care provider this week. Please follow-up with bariatric Return to the emergency department with new or worsening symptoms. Such as fevers, chills, chest pain, shortness of breath, nausea, vomiting, dizziness, headache, vision changes, lethargy, vomiting blood In case of emergency call 911 Spoke to Rosalie CORTES from Bariatrics who recommends for you to call Monday to schedule and apt with them. Recommends a clear liquid diet (atleast 60 oz a day) if tolerating that can try shakes, 3 (30 g of protein) Fairlife shakes per day, as tolerated. 1 shake should be drank over a period of 2 hours and she should try to drink 1 oz every 15 minutes slowly. Prescriptions: New ondansetron 4 mg tablet,disintegrating 4 mg PO ONCE PRN (Reason: nausea and vomiting) Qty: 10 0RF No Action docusate sodium [Colace] 100 mg capsule 100 mg PO DAILY Qty: 30 2RF nitrofurantoin monohyd/m-cryst [Macrobid] 100 mg capsule 100 mg PO BID 7 Days Qty: 14 0RF Rx Instructions: must administer with a meal/food pantoprazole 40 mg tablet,delayed release (DR/EC) 40 mg PO DAILY Qty: 30 2RF ondansetron HCl 4 mg tablet 4 mg PO Q12H Qty: 20 0RF docusate sodium [Colace] 100 mg capsule 100 mg PO DAILY Qty: 30 2RF sertraline 25 mg tablet 25 mg PO DAILY Referrals: Jamar Wetzel MD [Physician] - 2 days
[2021-11-27 18:14] LABS: INTERNATIONAL NORM RATIO 1.1 (0.9-1.1); Prothrombin Time 12.6 SEC (10.0-13.1)
== END 2021-11-27 19:08 | disposition home or self-care (01) ==
PROVIDERS: Physician Assistant; Emergency Provider Emergency Medicine; PCP Nurse Practitioner Family
DX: K92.0 Hematemesis (principal); Z98.84 Bariatric surgery status; E78.5 Hyperlipidemia, unspecified
CPT/HCPCS: 36415; 80048; 80076; 83690; 85025; 85610; 99283; 99284

== ENCOUNTER → 2021-12-20 15:05 | Outpatient (BNVA) | payer OTHER, SELFPAY | PROVIDERS: PCP Nurse Practitioner Family; Visit Provider Dietitian, Registered | DX: E66.9 Obesity, unspecified (principal); Z71.3 Dietary counseling and surveillance; Z63.0 Problems in relationship with spouse or partner | CPT/HCPCS: 97803 ==

== ENCOUNTER 2021-12-30 09:27 | Outpatient (REF) | payer OTHER, SELFPAY ==
[2021-12-30 10:06] LABS: MANUAL DIFF FLAG NO
[2021-12-30 10:47] LABS: Basophils Percent Auto 0.8 % (0-2); Eosinophils Absolute Auto 0.1 X10*3/uL (0.0-0.4); Eosinophils Percent Auto 1.2 % (0-4); Estimated Average Glucose 91 mg/dL; Hemoglobin 12.4 g/dl (12.0-16.0); Hemoglobin A1c % 4.8 %; Imm Gran Abs Auto 0.02 X10*3/uL (0.00-0.03); Imm Gran Pct Auto 0.4 % (0.0-0.4); Lymphocytes Absolute Auto 1.6 X10*3/uL (1.2-4.9); Lymphocytes Percent Auto 33.2 % (20-40); Mean Corpuscular HGB Conc 32.6 g/dl (31.0-35.0); Mean Corpuscular Hemoglobin 29.6 pg (27.0-33.0); Mean Corpuscular Volume 90.7 fL (80.0-98.0); Mean Platelet Volume 11.4 fL (9.4-12.3); Monocytes Absolute Auto 0.3 X10*3/uL (0.1-1.2); Monocytes Percent Auto 5.9 % (2-11); Neutrophils Absolute Auto 2.9 x10*3/uL (2.0-8.3); Neutrophils Percent Auto 58.5 % (45-73); Platelet Count 301 X10*3/uL (160-400); Red Blood Count 4.19 X10*6/uL (4.20-5.50); Red Cell Distribution Width 11.9 % (11.0-16.0); White Blood Count 4.9 X10*3/uL (4.8-10.8)
[2021-12-30 11:04] LABS: Alanine Aminotransferase 13 U/L (0-31); Alkaline Phosphatase 106 U/L (39-117); Anion Gap 12 (12-20); Aspartate Amino Transferase 17 U/L (5-31); Bilirubin Total 0.8 mg/dL (0.0-1.0); Blood Urea Nitrogen 15 mg/dL (9-16); C Reactive Protein 0.04 mg/dL (< or = 0.50); Calcium 9.5 mg/dL (8.4-10.2); Carbon Dioxide 29 mmol/L (22-29); Chloride 105 mmol/L (96-108); Cholesterol 137 mg/dL; Estimated Glomerular Filt Rate > 60; Glucose Random 84 mg/dL (60-115); HDL Cholesterol 40 mg/dL; Iron 91 mcg/dL (30-160); LDL Cholesterol Calculated 84 mg/dl; Percent Iron Saturation 26 % (15-50); Potassium 4.3 mmol/L (3.3-5.1); Sodium 142 mmol/L (135-145); Total Iron Binding Capacity 352 mcg/dL (228-428); Total Protein 6.7 g/dL (6.5-8.0); Triglycerides 66 mg/dL; Unsaturated Iron Binding 261 ug/dL
[2021-12-30 11:28] LABS: Ferritin 16 ng/mL (10-122); Insulin 8 uU/mL (2-29); TSH reflex Free T4 1.14 uIU/mL (0.32-4.0); Vitamin D 25-OH Total 19.8 ng/mL (>30)
[2021-12-30 11:35] LABS: Folate 11.5 ng/mL (> or = 4.0); Vitamin B12 350 pg/mL (200-900)
[2021-12-31 13:12] LABS: Calcium (PTHI) 9.7 mg/dL (8.6-10.2); PTHI 45 pg/mL (16-77)
[2022-01-05 00:56] LABS: Vitamin A 55 mcg/dL (38-98)
[2022-01-05 01:52] LABS: Zinc 68 mcg/dL (60-130)
[2022-01-06 11:11] LABS: Vitamin B1 9 nmol/L (8-30)
== END 2021-12-30 09:28 | disposition home or self-care (01) ==
LOC: HO.LAB 09:27
PROVIDERS: Visit Provider Physician Assistant Surgical
DX: E66.3 Overweight (principal); Z68.25 Body mass index [BMI] 25.0-25.9, adult; Z98.84 Bariatric surgery status
CPT/HCPCS: 36415; 80053; 80061; 82306; 82607; 82728; 82746; 83036; 83525; 83540; 83970; 84425; 84443; 84590; 84630; 85025; 86140; 99212

== ENCOUNTER → 2022-07-13 13:58 | Outpatient (BNVA) | payer OTHER, SELFPAY | PROVIDERS: PCP Nurse Practitioner Family; Referring Provider Nurse Practitioner Family; Visit Provider Physician Assistant Surgical | DX: Z98.84 Bariatric surgery status (principal) | CPT/HCPCS: 99212 ==

== ENCOUNTER → 2022-12-21 15:33 | Outpatient (BNVA) | payer OTHER, SELFPAY | PROVIDERS: PCP Nurse Practitioner Family; Visit Provider Physician Assistant Surgical ==

== ENCOUNTER 2022-12-22 15:30 | Outpatient (AMB) | payer OTHER, SELFPAY ==
--- NOTE | 2022-12-22 14:54 | A.OFFVIS_ITS ---
Intake Intake Visit Reasons: VIDEO PO LSG 07/17/21 Allergies No Known Allergies Allergy (Verified 07/13/22 14:05) Medication List - Last Reconciled 12/22/22 by SOPHIA Bunch-C HPI HPI Comments History of Present Illness Details Pt is now 1 1/2 years s/p LSG. Labs were ordered at her last appt in June but were never drawn. Not taking any meds, is now back form [place] and wants to re- establish care. Still has burning sensation in stomach when doesn't eat - she discussed with Rosalie previously and not done. Sleeps 3 hours per night only. Bed normally 12 am - 5am, last night went to bed at 4am. Does not have therapist or psychiatrist presently. Stopped vaping. Not following any meal plan - may only have coffee all day. Doesn't know what she used before, but will start. [facility] Medical History BMI 36.0-36.9,adult BMI 37.0-37.9, adult Cholelithiasis Constipation Hyperlipidemia Moderate episode of recurrent major depressive disorder Morbid obesity Obesity PONV (postoperative nausea and vomiting) Steatosis, liver Vitamin A deficiency Vitamin B12 deficiency Vitamin D deficiency Surgical History Hx of external ear surgery Hx of tubal ligation S/P laparoscopic sleeve gastrectomy Family History Mother No problems noted. Father Stroke Hypertension Sister No problems noted. Sister Asthma Brother No problems noted. Son No problems noted. Daughter No problems noted. Social History (Updated 07/13/22 @ 14:10 by Theresa Velazquez CMA) Are you a primary health care legal assistant to a significant other at home: Yes (children ages 6+1, there to help post-op) Do you presently have visiting nurse or other home services: No Alcohol intake: current Alcohol intake frequency: a few times a month Patient Tobacco Use Status: Former Tobacco user Quit Date: quit 3 weeks ago Substance Use Type: Marijuana service: No Current occupational status: unemployed Assessment & Plan Assessment & Plan (1) Depression: Code(s): F32.A - Depression, unspecified Plan: Will start patient on a meal plan that will be easy for her to follow for now while working on getting re-established. Restart bariatric MVI and calciuim/vit d bid. Patient is asking about panniculecomty surgery for her overhanging pannus and pruritic rashes. I told her she needs to re -stablish healthy eating, sleeping and exercise routines before she would be deemed healthy enough for another surgery. MUST get labs done now. 9am - Premier shake Coffee after shake - or stop completely 1pm - 4 oz fish or chicken and 4oz of vegetables 5pm- another shake 9pm - yogurt Exercise - keep doing exercise at home appointment now Appt with Marlena in 3 weeks should follow her to get her back eating healthfully. Me in 6 months. I spent 28 minutes in total speaking with the patient via video conference counseling , reviewing records and charting in patients chart. . (2) Malnutrition: Code(s): E46 - Unspecified protein-calorie malnutrition (3) S/P laparoscopic sleeve gastrectomy: Code(s): Z98.84 - Bariatric surgery status Medications: New calcium citrate-vitamin D3 315 mg-5 mcg (200 unit) (Calcium Citrate + D) 1 tab PO DAILY 90 tabs 3RF clotrimazole 1% 1 appl topical BID 90 grams 2RF Telehealth Telehealth Location of provider rendering services: practice address Location of patient: address on file Patient Identification confirmed using: Name, : Yes Telehealth method: video Patient verbally consented to treatment: Yes Patient verbally consented to billing insurance company: Yes Patient informed of any privacy concerns related to visit: Yes Coding Level of Care Code Tele Est Pt Level 4 (86765) Diagnoses Depression F32.A Malnutrition E46 S/P laparoscopic sleeve gastrectomy Z98.84
== END 2022-12-22 16:03 | disposition home or self-care (01) ==
LOC: HO.HBS 15:50
PROVIDERS: PCP Nurse Practitioner Family; Visit Provider Physician Assistant
DX: F32.A Depression, unspecified (principal); E46 Unspecified protein-calorie malnutrition; Z98.84 Bariatric surgery status
CPT/HCPCS: 99214

== ENCOUNTER → 2022-12-22 15:30 | Outpatient (BNVA) | payer OTHER, SELFPAY | PROVIDERS: PCP Nurse Practitioner Family; Visit Provider Physician Assistant ==

== ENCOUNTER 2023-01-03 09:45 | Outpatient (AMB) | payer OTHER, SELFPAY ==
--- NOTE | 2023-01-03 10:01 | A.OFFVIS_ITS ---
Intake VS Expanded 01/03/23 10:05 Height 5 ft 9 in Weight 159 lb BMI 23.5 BP 103/58 L Blood Pressure Location Rt brachial Blood Pressure Position Sitting Pulse 56 Pulse Source Pulse Oximeter Temp 97.2 F Temperature Source Tympanic Pulse Oximetry 99 Oxygen Delivery Method Room Air Body Fat 52.4 Body Fat Percentage 33.0 Free Fat Mass 106.4 Muscle Mass 101.0 Visceral Mass 3.0 Water Mass 76.8 BMR 1,491 Intake Visit Reasons: (OV) PO LSG 07/15/21 Allergies No Known Allergies Allergy (Verified 01/03/23 10:01) Medication List - Last Reconciled 01/03/23 by SOPHIA Fuentes calcium citrate-vitamin D3 315 mg-5 mcg (200 unit) (Calcium Citrate + D) 1 tab PO DAILY clotrimazole 1% 1 appl topical BID sertraline 25 mg PO DAILY HPI HPI Comments History of Present Illness Details Pt is 18 months s/p LSG. Seen 2 weeks ago by Kelley. Returns to clinic today and thinks she has gained a few pounds since starting this meal plan. Has not met with RD. Burning sensation in stomach has improved on this new meal plan. She has cut her vaping down. Restarted anxiety meds which she finds helpful. Had planned to have labs done today but mistakenly drank some juice. Current meal plan given at last visit: 9am - Premier shake Coffee after shake - or stop completely 1pm - 4 oz fish or chicken and 4oz of vegetables 5pm- another shake 9pm - yogurt Has not exercised as much in recent weeks; usually likes home exercise. Pt continues to experience ongoing problems of excess skin of abdomen. She has been having persistent rashes requiring the use of clotrimazole ointment but this has not completely resolved the problem. She notices an unpleasant odor when sweat collects in the skin fold and has to wash frequently. Exercise is more difficult due to the heaviness of skin causing discomfort and getting in the way, limiting her range of motion. [facility] Medical History BMI 36.0-36.9,adult BMI 37.0-37.9, adult Cholelithiasis Constipation Hyperlipidemia Moderate episode of recurrent major depressive disorder Morbid obesity Obesity PONV (postoperative nausea and vomiting) Steatosis, liver Vitamin A deficiency Vitamin B12 deficiency Vitamin D deficiency Surgical History Hx of external ear surgery Hx of tubal ligation S/P laparoscopic sleeve gastrectomy Family History Mother No problems noted. Father Stroke Hypertension Sister No problems noted. Sister Asthma Brother No problems noted. Son No problems noted. Daughter No problems noted. Social History (Updated 07/13/22 @ 14:10 by Theresa Velazquez CMA) Are you a primary director of critical care to a significant other at home: Yes (children ages 6+1, there to help post-op) Do you presently have visiting nurse or other home services: No Alcohol intake: current Alcohol intake frequency: a few times a month Patient Tobacco Use Status: Former Tobacco user Quit Date: quit 3 weeks ago Substance Use Type: Marijuana service: No Current occupational status: unemployed Physical Exam Vital Signs: Last Vital Signs Temp 97.2 F 01/03/23 10:05 Pulse 56 01/03/23 10:05 BP 103/58 L 01/03/23 10:05 Pulse Ox 99 01/03/23 10:05 Oxygen Delivery Method Room Air 01/03/23 10:05 BMI result Body Mass Index 23.5 Assessment & Plan Assessment & Plan (1) S/P laparoscopic sleeve gastrectomy: Code(s): Z98.84 - Bariatric surgery status (2) Excess skin: Code(s): L98.7 - Excessive and redundant skin and subcutaneous tissue Plan We adjusted her meal plan as she may be getting too much protein for current body weight and is not exercising as much. Either: 9am- shake 1pm- 4oz/4oz 6pm- shake Or 9am- shake 1pm- 4oz/4oz 5pm- 15g bar 9pm- yogurt Discussed that pt will have to stop vaping 1+ month prior to skin removal surgery. Reminded her again to get her labs done and she plans to go later this week. Pt is experiencing issues of excess skin of abdomen, resulting in painful and malodorous rashes resistant to topical Rx treatment and limiting her range of motion with activity. She would benefit from panniculectomy once nutrition has improved. Will schedule appt with RD in 1 month to ensure compliance with meal plan and e xpand if desired; visit with BH at next available; and visit in 3 months with me to discuss skin removal surgery. Patient is at healthy BMI but with ongoing problems of excess skin of abdomen, and is not considered stable at this time. I spent a total of 30 minutes reviewing/updating records, examining the patient and counseling the patient on weight management as detailed above. Coding Level of Care Code Est Pt Level 4 (95945) Diagnoses S/P laparoscopic sleeve gastrectomy Z98.84 Excess skin L98.7
[2023-01-03 10:05] VITALS: BP 103/58; PULSE 56; TEMP 36.2; O2SAT 99; BMI 23.5
== END 2023-01-03 10:47 | disposition home or self-care (01) ==
PROVIDERS: Visit Provider Physician Assistant Surgical
DX: L98.7 Excessive and redundant skin and subcutaneous tissue (principal); Z98.84 Bariatric surgery status
CPT/HCPCS: 99214

== ENCOUNTER → 2023-01-03 09:45 | Outpatient (BNVA) | payer OTHER, SELFPAY | PROVIDERS: Visit Provider Physician Assistant Surgical | DX: L98.7 Excessive and redundant skin and subcutaneous tissue (principal); Z98.84 Bariatric surgery status | CPT/HCPCS: 99212 ==

== ENCOUNTER 2023-03-08 10:54 | Outpatient (AMB) | payer OTHER, SELFPAY ==
--- NOTE | 2023-03-08 11:00 | A.OFFVIS_ITS ---
Intake VS Expanded 03/08/23 11:23 BP 138/75 Blood Pressure Location Rt brachial Blood Pressure Position Sitting Pulse 87 Pulse Source Pulse Oximeter Temp 96.9 F Temperature Source Temporal Artery Scan Pulse Oximetry 99 Oxygen Delivery Method Room Air Height 5 ft 9 in Weight 153 lb 6.4 oz BMI 22.7 Body Fat % 33.4 Body Fat Mass 51.2 Fat Free Mass 102.0 Visceral Fat Rating 3.0 Body Water % 47.9 Body Water Mass 73.4 Muscle Mass/Score 96.8 Basal Metabolic Rate/Score 1,437 Intake Visit Reasons: (OV) PO LSG 07/15/21 Allergies No Known Allergies Allergy (Verified 03/08/23 11:18) Medication List - Last Reconciled 03/08/23 by SOPHIA Bunch-Elida calcium citrate-vitamin D3 315 mg-5 mcg (200 unit) (Calcium Citrate + D) 1 tab PO DAILY clotrimazole 1% 1 appl topical BID sertraline 25 mg PO DAILY HPI HPI Comments History of Present Illness Details Pt is 1 year and 8 months s/p LSG, she has had a few appts recently due to initial complaints fo epigastirc pain and reflux with meals, we changed her meal plan and her symptoms improved. At her last appt with Rosalie her meal plan was changed to either: States she is only having 3 Premeir shakes per day at (8:30, 1:30 and 6pm) Does not feel like eating and then gets nauseated when eats, no reflux now. Only used shakes and bars for 3 months before surgery. Stopped vaping tobacco about 4 weeks ago. No ETOH, marijuana - smoking 2 joints a day. Stopped caffeine Exercise - not much lately,plans to restart gym with her brother. [facility] Medical History BMI 36.0-36.9,adult BMI 37.0-37.9, adult Cholelithiasis Constipation Hyperlipidemia Moderate episode of recurrent major depressive disorder Morbid obesity Obesity PONV (postoperative nausea and vomiting) Steatosis, liver Vitamin A deficiency Vitamin B12 deficiency Vitamin D deficiency Surgical History Hx of external ear surgery Hx of tubal ligation S/P laparoscopic sleeve gastrectomy Family History Mother No problems noted. Father Stroke Hypertension Sister No problems noted. Sister Asthma Brother No problems noted. Son No problems noted. Daughter No problems noted. Social History (Updated 07/13/22 @ 14:10 by Theresa Velazquez CMA) Are you a primary college and career counselor to a significant other at home: Yes (children ages 6+1, there to help post-op) Do you presently have visiting nurse or other home services: No Alcohol intake: current Alcohol intake frequency: a few times a month Patient Tobacco Use Status: Former Tobacco user Quit Date: quit 3 weeks ago Substance Use Type: Marijuana service: No Current occupational status: unemployed Assessment & Plan Assessment & Plan (1) Malnutrition: Code(s): E46 - Unspecified protein-calorie malnutrition Plan: Meal plan 8- 9am - 2 eggs with peppers and other vegetables 1pm - shake snack of fruit during the day 6pm - 2 oz protien, 2o z vegetables, 2 oz beans/rice Will get labs drawn tomorrow Restart Bariatric MVI I sent prescrtiption to restart sertraline today and will contact PCP for further care. Switch to marijuana edibles for now until back on sertraline and doesn't need it for anxiety control. Appts with Marlena later this month (will need multiple appts)and Angelique now (prefers Portuguese). Wll put off panniculectomy surgery for now until eating behaviors are in good control. Next appt with me 3 months. Patient is not considered stable at this time. I spent 30 minutes in total with patient reviewing/updating records, examining the patient and counseling the patient on weight management as detailed above. (2) Excess skin: Code(s): L98.7 - Excessive and redundant skin and subcutaneous tissue (3) S/P laparoscopic sleeve gastrectomy: Code(s): Z98.84 - Bariatric surgery status Medications: New sertraline 25 mg PO DAILY 30 tabs 0RF Coding Level of Care Code Est Pt Level 4 (28861) Diagnoses Malnutrition E46 Excess skin L98.7 S/P laparoscopic sleeve gastrectomy Z98.84
[2023-03-08 11:23] VITALS: BP 138/75; PULSE 87; TEMP 36.1; O2SAT 99; BMI 22.7
== END 2023-03-08 11:51 | disposition home or self-care (01) ==
PROVIDERS: PCP Nurse Practitioner Family; Visit Provider Physician Assistant
DX: E46 Unspecified protein-calorie malnutrition (principal); L98.7 Excessive and redundant skin and subcutaneous tissue; Z98.84 Bariatric surgery status
CPT/HCPCS: 99214

== ENCOUNTER → 2023-03-08 10:54 | Outpatient (BNVA) | payer OTHER, SELFPAY | PROVIDERS: PCP Nurse Practitioner Family; Visit Provider Physician Assistant | DX: E46 Unspecified protein-calorie malnutrition (principal); L98.7 Excessive and redundant skin and subcutaneous tissue; Z98.84 Bariatric surgery status | CPT/HCPCS: 99212 ==